=== PATIENT | female | born 1945 | race Caucasian/White ===

== ENCOUNTER 2017-01-03 09:38 | Emergency (ER) | payer MEDICARE, OTHER ==
[2017-01-03 09:46] VITALS: BMI 33.2
--- NOTE | 2017-01-03 09:52 | PDOC ---
History of Present Illness - General Chief Complaint: Shortness of Breath Stated Complaint: SOB, LEG PAIN Time Seen by Provider: 01/03/17 09:51 - History of Present Illness Initial Comments: 01/03/17 09:52 Ms. Lincoln is a 71 yo female with a significant past medical history of CAD S /P CABG, HTN, HLD, diabetes and hypothyroidism who presents to the emergency department c/o a 1 day history of sudden onset shortness of breath as well as significant bilateral pain to both of her legs from the knee down. She says that her SOB is non-positional and not related to exertion, and that her legs hurt with any pressure applied to them. The patient denies chest pain, headache and dizziness. Denies fever, chills, nausea, vomit, diarrhea and constipation. Denies dysuria, frequency, urgency and hematuria. Allergies: NKDA 01/03/17 13:06 Past History - Past Medical History Allergies/Adverse Reactions: Allergies Allergy/AdvReac Type Severity Reaction Status Date / Time No Known Allergies Allergy Verified 01/03/17 09:43 Home Medications: Ambulatory Orders Albuterol Sulfate Inhaler - [Ventolin HFA Inhaler -] 1 - 2 inh PO Q4H PRN Aspirin Coated [Ecotrin -] 81 mg PO DAILY 07/15/14 Ferrous Sulfate [Feosol] 325 mg PO BID 07/15/14 Furosemide [Lasix -] 20 mg PO DAILY 07/15/14 Insulin Lispro Protamin/Lispro [Humalog Mix 75-25 Kwikpen] 0 unit SQ DAILY 07/15 Levothyroxine [Synthroid -] 25 mcg PO DAILY 07/15/14 Linagliptin [Tradjenta] 5 mg PO DAILY 07/15/14 Nebivolol [Bystolic -] 5 mg PO DAILY 07/15/14 Omeprazole [Prilosec (RX)] 40 mg PO DAILY 07/15/14 Prasugrel Hydrochloride [Effient -] 5 mg PO DAILY 07/15/14 Rosuvastatin [Crestor -] 10 mg PO DAILY 07/15/14 Cardiac Disorders: Yes (cad -> cabg 2 y ago) COPD: No CHF: No DVT: No Diabetes: Yes HTN: Yes Hypercholesterolemia: No ('I have cholesterol but it's not high') Thyroid Disease: Yes (HYPO.) - Surgical History Abdominal Surgery: Yes Appendectomy: Yes Cardiac Surgery: Yes (bypass) - Suicide/Smoking/Psychosocial Hx Smoking Status: No Smoking History: Never smoked Number of Cigarettes Smoked Daily: 0 Information on smoking cessation initiated: No Hx Alcohol Use: No Drug/Substance Use Hx: No Substance Use Type: None Hx Substance Use Treatment: No Review of Systems - Review of Systems Comments:: 01/03/17 09:52 GENERAL/CONSTITUTIONAL: No fever or chills. No weakness. HEAD, EYES, EARS, NOSE AND THROAT: No change in vision. No ear pain or discharge. No sore throat. CARDIOVASCULAR: No chest pain or shortness of breath RESPIRATORY: +Patient states she suddenly started feeling short of breath yesterday while at rest. No cough, wheezing, or hemoptysis. GASTROINTESTINAL: No nausea, vomiting, diarrhea or constipation. GENITOURINARY: No dysuria, frequency, or change in urination. MUSCULOSKELETAL: +Bilateral leg swelling for the last day that the patient says is acutely painful. This has happened previously and went away on its own. SKIN: No rash NEUROLOGIC: No headache, vertigo, loss of consciousness, or change in strength/ sensation. ENDOCRINE: No increased thirst. No abnormal weight change HEMATOLOGIC/LYMPHATIC: No anemia, easy bleeding, or history of blood clots. ALLERGIC/IMMUNOLOGIC: No hives or skin allergy. *Physical Exam - Vital Signs Last Vital Signs Temp Pulse Resp BP Pulse Ox 98.1 F 63 18 147/75 99 01/03/17 09:44 01/03/17 09:44 01/03/17 09:44 01/03/17 09:44 01/03/17 09:44 - Physical Exam Comments: 01/03/17 09:52 GENERAL: Awake, alert, and fully oriented, in no acute distress HEAD: No signs of trauma, normocephalic, atraumatic EYES: PERRLA, EOMI, sclera anicteric, conjunctiva clear ENT: Auricles normal inspection, hearing grossly normal, nares patent, oropharynx clear without exudates. Moist mucosa NECK: Normal ROM, supple, no lymphadenopathy, JVD, or masses LUNGS: +Patient resting comfortably on 2L O2. Speaks full sentences, clear to auscultation bilaterally HEART: Regular rate and rhythm, normal S1 and S2, no murmurs, rubs or gallops, peripheral pulses normal and equal bilaterally. ABDOMEN: Soft, nontender, normoactive bowel sounds. No guarding, no rebound. No masses EXTREMITIES: +Lower extremities appear edematous, 1+ pedal edema bilaterally. Graft scars appreciable bilaterally. Acutely tender to palpation below knee extending to bottom of foot bilaterally. NEUROLOGICAL: Cranial nerves II through XII grossly intact. Normal speech, normal gait, no focal sensorimotor deficits SKIN: Warm, Dry, normal turgor, no rashes or lesions noted. ED Treatment Course - LABORATORY CBC & Chemistry Diagram: 01/03/17 10:17 01/03/17 10:17 Medical Decision Making - Medical Decision Making 01/03/17 13:01 71 yo female with subjective dyspnea w/o hypoxia or any physical signs of respiratory distress. With leg swelling and sudden onset, both CTA and bilateral lower extremity duplex US performed. Duplex negative for any deep vein thrombosis, CTA found trace layering bilateral pleural effusions significant for mild CHF decompensation. 01/03/17 13:18 Patient discussed with PCP (Niki) - recommended 40 of lasix for dieresis and to instruct patient to take 2 tabs of home lasix for the next 2 days and follow- up on Tuesday. Will comply with recommendations. *DC/Admit/Observation/Transfer Diagnosis at time of Disposition: Pleural effusion - Discharge Dispostion Disposition: HOME - Referrals Referrals: Bronson Prince [Primary Care Provider] - - Patient Instructions Printed Discharge Instructions: Pleural Effusion Additional Instructions: We are sorry that you feel ill today. You have been diagnosed with pleural effusion. Please take 2 pills of your proscribed lasix tomorrow and tuesday and follow-up with your primary doctor on Tuesday or . We hope you feel better soon. Print Language: CAMBODIAN
--- NOTE | 2017-01-03 10:19 | PDOC ---
Attending Attestation - Resident Resident Name: Bautista Guardado - ED Attending Attestation I have performed the following: I have examined & evaluated the patient, The case was reviewed & discussed with the resident, I agree w/resident's findings & plan, Exceptions are as noted - HPI HPI: 01/03/17 10:17 Leg swelling, shortness of breath - Physicial Exam PE: 01/03/17 10:18 VSS NAD - Medical Decision Making 01/03/17 10:[address] Guardado's Assessment and Plan <Bradley Falk - Last Filed: 01/03/17 10:17> - Medical Decision Making 01/03/17 13:09 Dr. Bronson Prince was paged at the office requesting a call back for doctor to doctor consult. Documentation prepared by Claudia Stephens, acting as medical anthropologist for Bradley Falk DO <Claudia Stephens - Last Filed: 01/03/17 13:09>
[2017-01-03 10:52] LABS: BASOPHIL 0.8 % (0-2.0); EOSINOPHIL 4.4 % (0-4.5); MCH 30.2 pg (25.7-33.7); MCHC 32.6 g/dl (32.0-36.0); MEAN CELL VOLUME 92.5 fl (80-96); MEAN PLT VOLUME 7.2 fl (7.5-11.1); NEUTROPHILS 62.1 % (42.8-82.8); PLATELET COUNT 244 K/MM3 (134-434); RDW 14.3 % (11.6-15.6); WHITE BLOOD COUNT 6.9 K/mm3 (4.0-10.0)
[2017-01-03 11:02] LABS: ALBUMIN 3.3 g/dl (3.4-5.0); ANION GAP 5 (8-16); BILIRUBIN,TOTAL 0.6 mg/dL (0.2-1.0); CALCIUM 8.4 mg/dL (8.5-10.1); CO2 28 mmol/L (21-32); CREATININE 1.3 mg/dL (0.55-1.02); GLUCOSE,RANDOM 137 mg/dL (74-106); SGOT/AST 18 U/L (15-37); SGPT/ALT 19 U/L (12-78)
[2017-01-03 11:04] LABS: ALK PHOS 69 U/L (45-117); TOT PROT 7.2 g/dl (6.4-8.2)
[2017-01-03] MEDS ORDERED: SODIUM CHLORIDE 1,000 ML IV STA (11:08)
[2017-01-03 11:09] LABS: INR 1.05 (0.82-1.09); PROTHROMBIN TIME (PATIENT) 11.6 SEC (9.98-11.88)
[2017-01-03 11:10] LABS: CPK 190 IU/L (26-192); THYROID STIMULATING HORMONE 4.06 uIU/ml (0.358-3.74); TROPONIN I < 0.02 ng/ml (0.00-0.05)
[2017-01-03 12:24] LABS: URINE APPEARANCE CLEAR; URINE BILIRUBIN NEGATIVE (NEGATIVE); URINE BLOOD NEGATIVE (NEGATIVE); URINE COLOR STRAW; URINE GLUCOSE (UA) NEGATIVE (NEGATIVE); URINE KETONE NEGATIVE (NEGATIVE); URINE NITRITE NEGATIVE (NEGATIVE); URINE PROTEIN NEGATIVE (NEGATIVE); URINE UROBILINOGEN NEGATIVE mg/dL (0.2-1.0)
--- NOTE | 2017-01-03 12:37 | EKG ---
Test Reason : Blood Pressure : / mmHG Vent. Rate : 061 BPM Atrial Rate : 061 BPM P-R Int : 152 ms QRS Dur : 124 ms QT Int : 458 ms P-R-T Axes : 052 -33 -08 degrees QTc Int : 461 ms NORMAL SINUS RHYTHM LEFT AXIS DEVIATION RIGHT BUNDLE BRANCH BLOCK ABNORMAL ECG WHEN COMPARED WITH ECG OF 13-DEC-2015 12:04, T WAVE VARIATION Confirmed by MANDA LEWIS MD ([id number]) on 01/03/2017 12:37:10 PM Referred By: Confirmed By:MANDA LEWIS MD
[2017-01-03] MEDS ORDERED: FUROSEMIDE 40 MG/4 ML INJECTABLE VIAL IVPUSH ONE (13:20)
[2017-01-03] MEDS ORDERED: FUROSEMIDE 40 MG/4 ML INJECTABLE VIAL ONE (13:21)
[2017-01-03 15:58] VITALS: BP 119/57; PULSE 62; TEMP 98
[2017-01-03 17:11] LABS: URINE LEUK ESTERASE Negative (NEGATIVE)
== END 2017-01-03 16:03 | disposition home or self-care (01) ==
LOC: JER 09:38
PROC: 3E033GC Introduction of Other Therapeutic Substance into Peripheral Vein, Percutaneous Approach (ICD-10-PCS; principal; 2017-01-03)
PROC: 3E0337Z Introduction of Electrolytic and Water Balance Substance into Peripheral Vein, Percutaneous Approach (ICD-10-PCS; 2017-01-03)
DX: J90 Pleural effusion, not elsewhere classified (principal); I10 Essential (primary) hypertension; E78.5 Hyperlipidemia, unspecified; I25.10 Atherosclerotic heart disease of native coronary artery without angina pectoris; Z95.1 Presence of aortocoronary bypass graft; E03.9 Hypothyroidism, unspecified; E11.9 Type 2 diabetes mellitus without complications
CPT/HCPCS: 36415; 71275-TC; 80053; 81003; 82553; 83880; 84443; 84484; 85025; 85610; 93005; 93010; 93970-TC; 99285-25

== ENCOUNTER 2017-06-01 08:13 | Emergency (ER) | payer MEDICARE, OTHER ==
[2017-06-01 08:25] VITALS: BP 145/67; PULSE 72; TEMP 99.3; BMI 29.2
--- NOTE | 2017-06-01 08:55 | PDOC ---
History of Present Illness - General Chief Complaint: Cold Symptoms Stated Complaint: COUGH, FEVER Time Seen by Provider: 06/01/17 08:31 History Source: Patient Exam Limitations: No Limitations - History of Present Illness Initial Comments: 06/01/17 08:49 71 yr female with c/o cough and fever since last night. no abd pain no chest pain or diarrhea. history of DM, HTN obesity. Past History - Past Medical History Allergies/Adverse Reactions: Allergies Allergy/AdvReac Type Severity Reaction Status Date / Time No Known Allergies Allergy Verified 06/01/17 08:24 Home Medications: Ambulatory Orders Albuterol Sulfate Inhaler - [Ventolin HFA Inhaler -] 1 - 2 inh PO Q4H PRN Aspirin Coated [Ecotrin -] 81 mg PO DAILY 07/15/14 Ferrous Sulfate [Feosol] 325 mg PO BID 07/15/14 Furosemide [Lasix -] 20 mg PO DAILY 07/15/14 Insulin Lispro Protamin/Lispro [Humalog Mix 75-25 Kwikpen] 0 unit SQ DAILY 07/15 Levothyroxine [Synthroid -] 25 mcg PO DAILY 07/15/14 Linagliptin [Tradjenta] 5 mg PO DAILY 07/15/14 Nebivolol [Bystolic -] 5 mg PO DAILY 07/15/14 Omeprazole [Prilosec (RX)] 40 mg PO DAILY 07/15/14 Prasugrel Hydrochloride [Effient -] 5 mg PO DAILY 07/15/14 Rosuvastatin [Crestor -] 10 mg PO DAILY 07/15/14 Furosemide [Lasix] 20 mg PO BID #6 tablet 01/03/17 Oseltamivir Phosphate [Tamiflu] 75 mg PO BID #10 capsule 06/01/17 Cardiac Disorders: Yes (cad -> cabg 2 y ago) COPD: No CHF: No DVT: No Diabetes: Yes HTN: Yes Hypercholesterolemia: No ('I have cholesterol but it's not high') Thyroid Disease: Yes (HYPO.) - Surgical History Abdominal Surgery: Yes Appendectomy: Yes Cardiac Surgery: Yes (bypass) - Suicide/Smoking/Psychosocial Hx Smoking Status: No Smoking History: Never smoked Number of Cigarettes Smoked Daily: 0 Information on smoking cessation initiated: No Hx Alcohol Use: No Drug/Substance Use Hx: No Substance Use Type: None Hx Substance Use Treatment: No Respiratory Specific PMHX - Complaint Specific PMHX Angina: No Bronchitis: No Pneumonia: No Pulmonary Embolus: No TB (Tuberculosis): No Review of Systems - Review of Systems Able to Perform ROS?: Yes Is the patient limited Chadian proficient: No Constitutional: Yes: Symptoms Reported HEENTM: No: Symptoms Reported Respiratory: Yes: Cough Cardiac (ROS): No: Symptoms Reported ABD/GI: No: Symptoms Reported : No: Symptoms Reported Musculoskeletal: Yes: Symptoms Reported *Physical Exam - Vital Signs Last Vital Signs Temp Pulse Resp BP Pulse Ox 99.3 F 72 19 145/67 97 06/01/17 08:23 06/01/17 08:23 06/01/17 08:23 06/01/17 08:23 06/01/17 08:23 - Physical Exam General Appearance: Yes: Nourished, Appropriately Dressed HEENT: positive: EOMI, KENNY, TMs Normal, Pharyngeal Erythema. negative: Tonsillar Exudate, Tonsillar Erythema Neck: positive: Supple. negative: Tender Respiratory/Chest: positive: Lungs Clear, Normal Breath Sounds. negative: Crackles, Rales, Rhonchi, Stridor, Wheezing Cardiovascular: positive: Regular Rhythm, Regular Rate Gastrointestinal/Abdominal: positive: Normal Bowel Sounds, Soft. negative: Tender Musculoskeletal: positive: Normal Inspection Extremity: positive: Normal Capillary Refill, Normal Inspection, Normal Range of Motion Integumentary: positive: Normal Color, Dry, Warm Neurologic: positive: Fully Oriented, Alert, Normal Mood/Affect, Normal Response , Motor Strength 5/5 ED Treatment Course - RADIOLOGY Radiology Studies Ordered: Category Date Time Status CHEST PA & LAT [RAD] Stat Radiology 06/01/17 08:27 Taken Medical Decision Making - Medical Decision Making 06/01/17 08:57 cc: cough chills, fever , total body aches started last night no abd pain or vomiting no SOB pt denies smoking has dry cough will get CXR r/o pneumonia *DC/Admit/Observation/Transfer Diagnosis at time of Disposition: Influenza-like illness - Discharge Dispostion Disposition: HOME Condition at time of disposition: Good - Prescriptions Prescriptions: Oseltamivir Phosphate [Tamiflu] 75 mg PO BID #10 capsule - Referrals Referrals: Bronson Prince [Primary Care Provider] - - Patient Instructions Printed Discharge Instructions: DI for Viral Upper Respiratory Infection -- Adult Additional Instructions: rest at home and drink pleanty of fluids take tylenol 650mg every 4-6hrs for pain /chills /body aches take Tamiflu as directed, stop the tamiflu if you have vomiting or stomach upset or diarrhea Please follow with your doctor in 1-2 days for follow up Return to the ER for any worsening symptoms - Post Discharge Activity
[2017-06-01] MEDS ORDERED: ACETAMINOPHEN 325 MG TABLET (FP) PO ONE (09:12)
[2017-06-01] MEDS ORDERED: ACETAMINOPHEN 325 MG TABLET (FP) ONE (09:12)
== END 2017-06-01 09:17 | disposition home or self-care (01) ==
LOC: JERFT 08:13
DX: J11.1 Influenza due to unidentified influenza virus with other respiratory manifestations (principal); E11.9 Type 2 diabetes mellitus without complications; I10 Essential (primary) hypertension; E03.9 Hypothyroidism, unspecified; Z79.4 Long term (current) use of insulin
CPT/HCPCS: 71046-TC-FY; 99281-25

== ENCOUNTER 2019-02-24 10:03 | Inpatient (IN) | payer MEDICARE, OTHER ==
[2019-02-24 11:16] LABS: BASO % 0.5 % (0-2.0); EOS % 3.8 % (0-4.5); HEMATOCRIT 37.7 % (32.4-45.2); HEMOGLOBIN 12.8 GM/dL (10.7-15.3); LYMPH % 20.2 % (8-40); MCH 30.3 pg (25.7-33.7); MCHC 33.9 g/dl (32.0-36.0); MEAN CELL VOLUME 89.4 fl (80-96); MEAN PLT VOLUME 7.4 fl (7.5-11.1); MONO % 4.2 % (3.8-10.2); NEUT % 71.3 % (42.8-82.8); PLATELET COUNT 256 K/MM3 (134-434); RBC 4.22 M/mm3 (3.60-5.2); RDW 13.6 % (11.6-15.6); WHITE BLOOD COUNT 9.8 K/mm3 (4.0-10.0)
[2019-02-24 11:46] LABS: ALBUMIN 3.7 g/dl (3.4-5.0); BILIRUBIN,TOTAL 0.5 mg/dL (0.2-1); BLOOD UREA NITROGEN 24.4 mg/dL (7-18); CALCIUM 8.8 mg/dL (8.5-10.1); CREATININE 1.2 mg/dL (0.55-1.3); POTASSIUM 4.3 mmol/L (3.5-5.1); TOT PROT 7.4 g/dl (6.4-8.2)
[2019-02-24 11:48] LABS: INR 0.94 (0.83-1.09); PROTHROMBIN TIME (PATIENT) 11.1 SEC (9.7-13.0)
[2019-02-24] MEDS ORDERED: PIPERACILLIN/TAZOB 4.5 GM 4.5 GM in DEXTROSE 5%-WATER - 100 ML IVPB ONE (13:53)
[2019-02-24] MEDS ORDERED: PIPERACILLIN/TAZOB 4.5 GM 4.5 GM/100 ML BAG IVPB ONE (14:01)
[2019-02-24 14:11] LABS: PH,URINE 6.5 (5.0-8.0); URINE APPEARANCE CLEAR; URINE BILIRUBIN NEGATIVE (NEGATIVE); URINE COLOR YELLOW; URINE GLUCOSE (UA) NEGATIVE (NEGATIVE); URINE KETONE NEGATIVE (NEGATIVE); URINE LEUK ESTERASE NEGATIVE (NEGATIVE); URINE NITRITE NEGATIVE (NEGATIVE); URINE PROTEIN NEGATIVE (NEGATIVE); URINE UROBILINOGEN 0.2 mg/dL (0.2-1.0)
--- NOTE | 2019-02-24 14:20 | PDOC ---
Documentation entered by Zenia Schilling SCRIBE, acting as scribe for Jamie Cratf MD. Jamie Craft MD: This documentation has been prepared by the Shakir hubbard Brenda, SCRIBE, under my direction and personally reviewed by me in its entirety. I confirm that the documentation accurately reflects all work, treatment, procedures, and medical decision making performed by me. History of Present Illness - General Chief Complaint: Chest Pain Stated Complaint: CHEST PAIN Time Seen by Provider: 02/24/19 11:06 History Source: Patient Exam Limitations: No Limitations - History of Present Illness Initial Comments: 02/24/19 12:17 The patient is a 73 year old female, with a significant PMH of HTN, HLD, CAD ( cabg 2 years ago) and DM, hypothyroidism who presents to the emergency department with 3 days of chest pain and 1 day of abdominal pain. Patient reports that she has been feeling shortness of breath and palpations accompanied by the chest pain. She states trying her home albuterol to no avail. She reports the chest pain occurs at rest and with exertion. It is not reproducible. She denies trauma. Patient also reports that earlier in the day yesterday, she had sharp lower bilateral abdominal pain and 5 bouts of yellow diarrhea. She states that later that night around 12:00am, she began to feel chills and a subjective fever. The patient denies any similar episodes prior. Denies headache, focal weakness/ numbness and dizziness. Denies nausea, vomiting and constipation. Denies hematochezia. Denies dysuria, frequency, urgency and hematuria. Allergies: NKA Past surgical history: Appendectomy, Cardiac bypass Social history: No reported tobacco use, alcohol use or illicit drug use. PCP: Niki Past History - Past Medical History Allergies/Adverse Reactions: Allergies Allergy/AdvReac Type Severity Reaction Status Date / Time No Known Allergies Allergy Verified 02/24/19 10:16 Home Medications: Ambulatory Orders Amantadine HCl [Amantadine] 100 mg PO DAILY 02/24/19 Aspirin [ASA -] 81 mg PO DAILY 02/24/19 Calcium Carbonate/Vitamin D3 [Calcium 500 + Vit D3 400 Tab] 1 each PO BID Chlorthalidone 25 mg PO DAILY 02/24/19 Ferrous Sulfate 325 mg PO DAILY 02/24/19 Icosapent Ethyl [Vascepa] 1 cap PO DAILY 02/24/19 Insulin Aspart [Novolog] 100 unit SQ ASDIR 02/24/19 Levothyroxine [Synthroid -] 25 mcg PO DAILY 02/24/19 Linagliptin [Tradjenta] 5 mg PO DAILY 02/24/19 Multivitamins [Tab-A-Vit -] 1 tab PO DAILY 02/24/19 Rosuvastatin Calcium 20 mg PO DAILY 02/24/19 Cardiac Disorders: Yes (cad -> cabg 2 y ago) COPD: No CHF: No DVT: No Diabetes: Yes HTN: Yes Hypercholesterolemia: No ('I have cholesterol but it's not high') Thyroid Disease: Yes (HYPO.) - Surgical History Abdominal Surgery: Yes Appendectomy: Yes Cardiac Surgery: Yes (bypass) - Psycho Social/Smoking Cessation Hx Smoking Status: No Smoking History: Never smoked Number of Cigarettes Smoked Daily: 0 Hx Alcohol Use: No Drug/Substance Use Hx: No Substance Use Type: None Hx Substance Use Treatment: No Review of Systems - Review of Systems Able to Perform ROS?: Yes Comments:: 02/24/19 13:01 GENERAL/CONSTITUTIONAL: (+) Subjective fever and chills. No weakness. HEAD, EYES, EARS, NOSE AND THROAT: No change in vision. No ear pain or discharge. No sore throat. GASTROINTESTINAL: (+) Abdominal pain. (+) Diarrhea. No nausea, vomiting, diarrhea or constipation. GENITOURINARY: No dysuria, frequency, or change in urination. CARDIOVASCULAR: (+) Chest pain. (+) Palpitations. No chest pain or shortness of breath. RESPIRATORY: No cough, wheezing, or hemoptysis. MUSCULOSKELETAL: No joint or muscle swelling or pain. No neck or back pain. SKIN: No rash NEUROLOGIC: No headache, vertigo, loss of consciousness, or change in strength/ sensation. ENDOCRINE: No increased thirst. No abnormal weight change. HEMATOLOGIC/LYMPHATIC: No anemia, easy bleeding, or history of blood clots. ALLERGIC/IMMUNOLOGIC: No hives or skin allergy. *Physical Exam - Vital Signs Last Vital Signs Temp Pulse Resp BP Pulse Ox 968 F H 77 16 136/73 99 02/24/19 10:15 02/24/19 10:15 02/24/19 10:15 02/24/19 10:15 02/24/19 10:15 - Physical Exam 02/24/19 13:04 GENERAL: Awake, alert, and fully oriented, in no acute distress, non toxic EYES: PERRLA, EOMI, sclera anicteric, conjunctiva clear ENT: Nares patent, oropharynx clear without exudates. Moist mucosa NECK: Normal ROM, supple, no lymphadenopathy, JVD, or masses LUNGS: Breath sounds equal, clear to auscultation bilaterally. No wheezes, and no crackles HEART: Regular rate and rhythm, normal S1 and S2, no murmurs, rubs or gallops ABDOMEN: Soft, L>R lower abd ttp, normoactive bowel sounds. No guarding, no rebound. No masses EXTREMITIES: Normal range of motion, no edema.No cords, erythema, or tenderness NEUROLOGICAL: Normal speech, cranial nerves intact, equal strength and sensation bilaterally SKIN: Warm, Dry, normal turgor, no rashes or lesions noted." Heart Score/ECG Review - History History: Slightly suspicious - Electrocardiogram EKG: Non specific repolarization disturbance - Age Age: >/= 65 - Risk Factors Based on the list above the patient has:: >/=3 risk factors or Hx atherosclerotic disease - Troponin Troponin: </= normal limit - Score Heart Score - Total: 5 #1 02/24/19 14:19 Twelve-lead EKG was performed and reviewed by me. Normal sinus rhythm, rate 79. Left axis deviation. Right bundle branch block. When compared to previous EKG, no significant change. ED Treatment Course - LABORATORY CBC & Chemistry Diagram: 02/24/19 11:00 02/24/19 11:00 - ADDITIONAL ORDERS Additional order review: Laboratory Results 02/24/19 11:00 Magnesium 2.1 02/24/19 11:00 RBC 4.22 MCV 89.4 MCHC 33.9 RDW 13.6 MPV 7.4 L Neutrophils % 71.3 Lymphocytes % 20.2 D Monocytes % 4.2 Eosinophils % 3.8 Basophils % 0.5 - RADIOLOGY Radiology Studies Ordered: Category Date Time Status ABDOMEN & PELVIS CT WITH CONTR [CT] Stat CT Scan 02/24/19 12:25 Completed Medical Decision Making - Medical Decision Making 02/24/19 12:16 73-year-old female with history of multiple medical problems including coronary artery disease status post CABG presents the emergency department with complaints of chest pain as well as abdominal pain. With regards to chest pain, differential includes ACS versus musculoskeletal pain versus pneumonia. EKG thus far is unchanged compared to baseline. With regards to abdominal pain differential includes UTI versus diverticulitis versus colitis. Plan for labs, urinalysis, CT scan of the abdomen and pelvis. Anticipate admission for chest pain given significant past cardiac history. 02/24/19 14:17 Labs within normal limits. Chest x-ray is clear. CT abdomen pelvis consistent with acute diverticulitis and possible early abscess formation. Patient has been covered with Zosyn for diverticulitis. Plan to admit to telemetry given chest pain as well. Dr. Graham's service has been contacted for admission, awaiting callback. 02/24/19 15:17 No call back, second call placed 02/24/19 15:[address] Syed, awaiting call back 02/24/19 16:[address] Syed, pt accepted for admission Case discussed in detail with admitting physician including history, physical exam and ancillary studies. Admitting physician has assumed care for the patient, will follow all pending diagnostics and will complete the evaluation and treatment. Discharge - Discharge Information Problems reviewed: Yes Clinical Impression/Diagnosis: Chest pain, Diverticulitis Condition: Stable - Follow up/Referral Referrals: Bronson Prince [Primary Care Provider] - - Patient Discharge Instructions - Post Discharge Activity
[2019-02-24] MEDS ORDERED: PIPERACILLIN/TAZOB 3.375 GM 3.375 GM/50 ML BAG IVPB ONE (20:13)
[2019-02-24] MEDS: PIPERACILLIN/TAZOB 3.375 GM 3.375 GM in DEXTROSE 5%-WATER - 50 ML IVPB SCH (20:48)
[2019-02-24] MEDS: SODIUM CHLORIDE 0.45%/POT 20 MEQ/1,000 ML INFUS.BAG IV SCH (20:48)
[2019-02-24] MEDS: ROSUVASTATIN CA 20 MG TABLET (FP) PO SCH (21:54)
[2019-02-24] MEDS: HEPARIN NA (PORCINE) 5,000 UNITS/ML 1ML VIAL SQ SCH (21:55)
[2019-02-25 00:19] VITALS: BMI 33.2
[2019-02-25] MEDS ORDERED: PIPERACILLIN/TAZOBACTAM 3.375 GM VIAL IVPB ONE ×3 (02:16→16:45)
[2019-02-25] MEDS ORDERED: DEXTROSE 5%-WATER - 50 ML IVPB ONE ×3 (02:17→16:45)
[2019-02-25] MEDS: PIPERACILLIN/TAZOB 3.375 GM 3.375 GM in DEXTROSE 5%-WATER - 50 ML IVPB SCH ×3 (02:56→17:03)
[2019-02-25] MEDS: LEVOTHYROXINE NA 25 MCG TABLET (FP) PO SCH (06:33)
[2019-02-25 07:10] LABS: BASO % 0.4 % (0-2.0); EOS % 3.6 % (0-4.5); HEMATOCRIT 39.7 % (32.4-45.2); HEMOGLOBIN 13.2 GM/dL (10.7-15.3); LYMPH % 28.6 % (8-40); MCH 29.9 pg (25.7-33.7); MCHC 33.2 g/dl (32.0-36.0); MEAN CELL VOLUME 90.2 fl (80-96); MEAN PLT VOLUME 7.6 fl (7.5-11.1); MONO % 5.3 % (3.8-10.2); NEUT % 62.1 % (42.8-82.8); PLATELET COUNT 277 K/MM3 (134-434); RDW 13.7 % (11.6-15.6); WHITE BLOOD COUNT 12.1 K/mm3 (4.0-10.0)
[2019-02-25 07:34] LABS: ALBUMIN 3.8 g/dl (3.4-5.0); ALK PHOS 85 U/L (45-117); ANION GAP 6 MMOL/L (8-16); BILIRUBIN,TOTAL 1.4 mg/dL (0.2-1); CALCIUM 8.9 mg/dL (8.5-10.1); CHLORIDE 104 mmol/L (98-107); CHOLESTEROL 160 mg/dL (50-200); CO2 27 mmol/L (21-32); CREATININE 1.5 mg/dL (0.55-1.3); GLUCOSE,RANDOM 95 mg/dL (74-106); HDL CHOLESTEROL 58 mg/dL (40-60); LDL CHOLESTEROL (ONLY SJRH) 72 mg/dL (5-100); MAGNESIUM 2.2 mg/dL (1.8-2.4); POTASSIUM 4.2 mmol/L (3.5-5.1); SGOT/AST 23 U/L (15-37); SGPT/ALT 22 U/L (13-61); SODIUM 138 mmol/L (136-145); TOT PROT 7.9 g/dl (6.4-8.2); TRIGLYCERIDES 240 mg/dL (0-150)
--- NOTE | 2019-02-25 10:22 | CON.CARD ---
Consult Consult Specialty:: Cardiology Referred by:: Yahaira Reason for Consultation:: chest pain - History of Present Illness Chief Complaint: chest pain, abd pain History of Present Illness: The patient is a 73 year old female, with a significant PMH of HTN, HLD, CAD ( cabg 2 years ago) and DM, hypothyroidism who presented with 3 days of chest pain and 1 day of abdominal pain, shortness of breath and palpations. She states trying her home albuterol to no avail. She reports the chest pain occurs at rest and with exertion. It is not reproducible. She denies trauma. Patient also reports that earlier in the day yesterday, she had sharp lower bilateral abdominal pain and 5 bouts of yellow diarrhea. She states that later that night around 12:00am, she began to feel chills and a subjective fever. A CT scan of the abdomen showed diverticulitis and early abscess formation. ECG showed no acute changes. - History Source History Provided By: Patient, Medical Record - Alcohol/Substance Use Hx Alcohol Use: No - Smoking History Smoking history: Never smoked Aproximately how many cigarettes per day: 0 Home Medications - Allergies Allergies/Adverse Reactions: Allergies Allergy/AdvReac Type Severity Reaction Status Date / Time No Known Allergies Allergy Verified 02/24/19 10:16 - Home Medications Home Medications: Ambulatory Orders Amantadine HCl [Amantadine] 100 mg PO DAILY 02/24/19 Aspirin [ASA -] 81 mg PO DAILY 02/24/19 Calcium Carbonate/Vitamin D3 [Calcium 500 + Vit D3 400 Tab] 1 each PO BID Chlorthalidone 25 mg PO DAILY 02/24/19 Ferrous Sulfate 325 mg PO DAILY 02/24/19 Icosapent Ethyl [Vascepa] 1 cap PO DAILY 02/24/19 Insulin Aspart [Novolog] 100 unit SQ ASDIR 02/24/19 Levothyroxine [Synthroid -] 25 mcg PO DAILY 02/24/19 Linagliptin [Tradjenta] 5 mg PO DAILY 02/24/19 Multivitamins [Tab-A-Vit -] 1 tab PO DAILY 02/24/19 Rosuvastatin Calcium 20 mg PO DAILY 02/24/19 Vital Signs: Vital Signs Temperature 98.9 F 02/25/19 07:00 Pulse Rate 80 02/25/19 07:00 Respiratory Rate 20 02/25/19 07:00 Blood Pressure 109/85 02/25/19 07:00 O2 Sat by Pulse Oximetry (%) 100 02/24/19 21:20 Constitutional: Yes: No Distress, Calm Eyes: Yes: Conjunctiva Clear, EOM Intact HENT: Yes: Normocephalic Neck: Yes: Trachea Midline Respiratory: Yes: CTA Bilaterally Gastrointestinal: Yes: Normal Bowel Sounds, Abdomen, Obese, Tenderness, Epigastrium Cardiovascular: Yes: Regular Rate and Rhythm JVD: No Carotid Bruit: No PMI: Non-Displaced Heart Sounds: Yes: S1, S2 Musculoskeletal: Yes: WNL Extremities: Yes: WNL Edema: No Peripheral Pulses WNL: Yes - Other Data Labs, Other Data: CBC, BMP 02/25/19 05:55 02/25/19 05:55 INR, PTT INR 0.94 (0.83-1.09) 02/24/19 11:00 Troponin, BNP 02/24/19 02/24/19 02/25/19 11:00 20:00 05:55 Troponin I < 0.02 < 0.02 < 0.02 Troponin, BNP 02/24/19 02/24/19 02/25/19 11:00 20:00 05:55 Troponin I < 0.02 < 0.02 < 0.02 Imaging - Results Cat Scan: Report Reviewed (diverticulitis, early abscess) EKG: Report Reviewed (nsr lad rbbb) Assessment/Plan 73 year old female, with a significant PMH of HTN, HLD, CAD (cabg 2 years ago) and DM, hypothyroidism who presented with 3 days of chest pain and 1 day of abdominal pain, shortness of breath and palpations. She states trying her home albuterol to no avail. She reports the chest pain occurs at rest and with exertion. It is not reproducible. She denies trauma. Patient also reports that earlier in the day yesterday, she had sharp lower bilateral abdominal pain and 5 bouts of yellow diarrhea. She states that later that night around 12:00am, she began to feel chills and a subjective fever. A CT scan of the abdomen showed diverticulitis and early abscess formation. ECG showed no acute changes. chest pain -atypical for angina, now stable. -she is not a candidate for ischemia workup at present given her infection status. -restart outpatient bp and lipid medication when stable for PO -she is followed by Glenn Lovett and Carmen at [facility] -while at present she is being managed conservatively, there are no cardiac contraindications to surgery if needed. -will follow with you.
[2019-02-25] MEDS: HEPARIN NA (PORCINE) 5,000 UNITS/ML 1ML VIAL SQ SCH ×2 (10:28→22:58)
[2019-02-25] MEDS: SODIUM CHLORIDE 0.45%/POT 20 MEQ/1,000 ML INFUS.BAG IV SCH ×2 (10:29→22:59)
--- NOTE | 2019-02-25 10:33 | CONSULT ---
Consult Consult Specialty:: Surgery Reason for Consultation:: Abdominal pain - History of Present Illness History of Present Illness: 73 year old female, with a significant PMH of HTN, HLD, CAD (cabg 2 years ago) and DM, hypothyroidism who presents to the emergency department with 3 days of chest pain and 1 day of abdominal pain. Patient reports that she has been feeling shortness of breath and palpations accompanied by the chest pain. She reports 3 days of crampy abdominal pain that has become progressivley worse, not associated with vomiting or change in bowel habits. There is no previous history of similar episodes and no history of previous abdominal surgery - Alcohol/Substance Use Hx Alcohol Use: No - Smoking History Smoking history: Never smoked Aproximately how many cigarettes per day: 0 Home Medications - Allergies Allergies/Adverse Reactions: Allergies Allergy/AdvReac Type Severity Reaction Status Date / Time No Known Allergies Allergy Verified 02/24/19 10:16 - Home Medications Home Medications: Ambulatory Orders Amantadine HCl [Amantadine] 100 mg PO DAILY 02/24/19 Aspirin [ASA -] 81 mg PO DAILY 02/24/19 Calcium Carbonate/Vitamin D3 [Calcium 500 + Vit D3 400 Tab] 1 each PO BID Chlorthalidone 25 mg PO DAILY 02/24/19 Ferrous Sulfate 325 mg PO DAILY 02/24/19 Icosapent Ethyl [Vascepa] 1 cap PO DAILY 02/24/19 Insulin Aspart [Novolog] 100 unit SQ ASDIR 02/24/19 Levothyroxine [Synthroid -] 25 mcg PO DAILY 02/24/19 Linagliptin [Tradjenta] 5 mg PO DAILY 02/24/19 Multivitamins [Tab-A-Vit -] 1 tab PO DAILY 02/24/19 Rosuvastatin Calcium 20 mg PO DAILY 02/24/19 Physical Exam Vital Signs: Vital Signs Temperature 99 F 02/25/19 09:00 Pulse Rate 76 02/25/19 09:00 Respiratory Rate 20 02/25/19 09:00 Blood Pressure 126/54 L 02/25/19 09:00 O2 Sat by Pulse Oximetry (%) 100 02/24/19 21:20 Gastrointestinal: Yes: Tenderness (Left Lower Quadrant tenderness with some guarding) Labs: CBC, BMP 02/25/19 05:55 02/25/19 05:55 Imaging - Results Cat Scan: Report Reviewed, Image Reviewed Problem List - Problems (1) Diverticulitis Code(s): K57.92 - DVTRCLI OF INTEST, PART UNSP, W/O PERF OR ABSCESS W/O BLEED Assessment/Plan 73 yr old female presenting with first episode of perforated diverticulitis with associted phlegmon. NPO Antibiotics Continue close observation I am concerned that the WBC is rising since admission She may need surgery in the event of clinical deterioration
--- NOTE | 2019-02-25 11:55 | HP ---
Admitting History and Physical - Admission History of Present Illness: 3 year old female, with a significant PMH of HTN, HLD, CAD (cabg 2 years ago) and DM, hypothyroidism who presents to the emergency department with 3 days of chest pain and 1 day of abdominal pain. Patient reports that she has been feeling shortness of breath and palpations accompanied by the chest pain. She states trying her home albuterol to no avail. She reports the chest pain occurs at rest and with exertion. It is not reproducible. She denies trauma. Patient also reports that earlier in the day yesterday, she had sharp lower bilateral abdominal pain and 5 bouts of yellow diarrhea. She states that later that night around 12:00am, she began to feel chills and a subjective fever. This am no cp or abdominal pain - Past Medical History Cardiovascular: Yes: CAD, HTN, Hyperlipdemia Pulmonary: Yes: Asthma Endocrine: Yes: Diabetes Mellitus, Hypothyroidism - Smoking History Smoking history: Never smoked Aproximately how many cigarettes per day: 0 - Alcohol/Substance Use Hx Alcohol Use: No Home Medications - Allergies Allergies/Adverse Reactions: Allergies Allergy/AdvReac Type Severity Reaction Status Date / Time No Known Allergies Allergy Verified 02/24/19 10:16 - Home Medications Home Medications: Ambulatory Orders Amantadine HCl [Amantadine] 100 mg PO DAILY 02/24/19 Aspirin [ASA -] 81 mg PO DAILY 02/24/19 Calcium Carbonate/Vitamin D3 [Calcium 500 + Vit D3 400 Tab] 1 each PO BID Chlorthalidone 25 mg PO DAILY 02/24/19 Ferrous Sulfate 325 mg PO DAILY 02/24/19 Icosapent Ethyl [Vascepa] 1 cap PO DAILY 02/24/19 Insulin Aspart [Novolog] 100 unit SQ ASDIR 02/24/19 Levothyroxine [Synthroid -] 25 mcg PO DAILY 02/24/19 Linagliptin [Tradjenta] 5 mg PO DAILY 02/24/19 Multivitamins [Tab-A-Vit -] 1 tab PO DAILY 02/24/19 Rosuvastatin Calcium 20 mg PO DAILY 02/24/19 Review of Systems - Review of Systems Cardiovascular: reports: Chest Pain Gastrointestinal: reports: Abdominal Pain, Diarrhea Genitourinary: reports: No Symptoms Physical Examination Vital Signs: Vital Signs Temperature 99 F 02/25/19 09:00 Pulse Rate 76 02/25/19 09:00 Respiratory Rate 20 02/25/19 09:00 Blood Pressure 126/54 L 02/25/19 09:00 O2 Sat by Pulse Oximetry (%) 100 02/24/19 21:20 Cardiovascular: Yes: S1, S2. No: Pulse Irregular Respiratory: Yes: Regular, CTA Bilaterally Gastrointestinal: Yes: Normal Bowel Sounds, Soft. No: Tenderness Edema: No Neurological: Yes: Alert, Oriented Labs: CBC, BMP 02/25/19 05:55 02/25/19 05:55 Imaging - Results Cat Scan: Report Reviewed Problem List - Problems (1) Diverticulitis Assessment/Plan: IV ABX ID,GI AND SURGICAL CONSULT NPO IVF Code(s): K57.92 - DVTRCLI OF INTEST, PART UNSP, W/O PERF OR ABSCESS W/O BLEED (2) Chest pain Assessment/Plan: TROPONIN NEGATIVE CARDIO CONSULT EKG NO ISCHEMIC CHANGES Code(s): R07.9 - CHEST PAIN, UNSPECIFIED (3) Diabetes Assessment/Plan: BGM WITH SS Code(s): E11.9 - TYPE 2 DIABETES MELLITUS WITHOUT COMPLICATIONS (4) HTN (hypertension) Assessment/Plan: Vital Signs Period Temp Pulse Resp BP Sys/Wiggins Pulse Ox Last 24 Hr 98.4 F-99.5 F 75-80 18-20 109-144/52-85 96-100 Code(s): I10 - ESSENTIAL (PRIMARY) HYPERTENSION (5) Hx of CABG Code(s): Z95.1 - PRESENCE OF AORTOCORONARY BYPASS GRAFT
[2019-02-25] MEDS: INSULIN (NOVOLOG) ASPART 100 UNITS/ML 10ML VIAL SQ SCH ×2 (16:32→22:58)
--- NOTE | 2019-02-25 16:51 | CON.ID ---
Consult Consult Specialty:: infectious disease Referred by:: dr lawson Reason for Consultation:: perforated diverticulitis - History of Present Illness Chief Complaint: abdominal pain History of Present Illness: 73 yo female with history of cabg, developed LLQ abdominal pain with chills and loose stools at home for one day- started on Tuesday after Thanksgiving no sick contacts no travel ct scan in ED with diverticular abscess reports some improvement in symptoms today- is npo this has never happened before +DM - History Source History Provided By: Patient, Family Member Limitations to Obtaining History: No Limitations - Past Medical History Cardio/Vascular: Yes: CAD, HTN, Hyperlipdemia Pulmonary: Yes: Asthma Endocrine: Yes: Diabetes Mellitus, Hypothyroidism - Past Surgical History Past Surgical History: Yes: Appendectomy, CABG - Alcohol/Substance Use Hx Alcohol Use: No - Smoking History Smoking history: Never smoked Aproximately how many cigarettes per day: 0 - Social History Usual Living Arrangement: With Child ADL: Independent Place of : Other ([facility]) History of Recent Travel: No Home Medications - Allergies Allergies/Adverse Reactions: Allergies Allergy/AdvReac Type Severity Reaction Status Date / Time No Known Allergies Allergy Verified 02/24/19 10:16 - Home Medications Home Medications: Ambulatory Orders Amantadine HCl [Amantadine] 100 mg PO DAILY 02/24/19 Aspirin [ASA -] 81 mg PO DAILY 02/24/19 Calcium Carbonate/Vitamin D3 [Calcium 500-Vit D3 400 Tablet] 1 each PO BID 02/24 Chlorthalidone 25 mg PO DAILY 02/24/19 Ferrous Sulfate 325 mg PO DAILY 02/24/19 Icosapent Ethyl [Vascepa] 1 cap PO DAILY 02/24/19 Insulin Aspart [Novolog] 100 unit SQ ASDIR 02/24/19 Levothyroxine [Synthroid -] 25 mcg PO DAILY 02/24/19 Linagliptin [Tradjenta] 5 mg PO DAILY 02/24/19 Multivitamins [Multivit ([facility] Formulary)] 1 tab PO DAILY 02/24/19 Rosuvastatin Calcium 20 mg PO DAILY 02/24/19 Ciprofloxacin [Cipro (Restricted To Id)] 500 mg PO Q12H #14 tablet 02/28/19 Empagliflozin [Jardiance] 10 mg PO DAILY #30 tablet 02/28/19 Rosuvastatin [Crestor -] 20 mg PO HS #30 tablet 02/28/19 metroNIDAZOLE [Flagyl -] 500 mg PO TID #21 tablet 02/28/19 Family Medical History Family History: Unable to Obtain Review of Systems - Review of Systems Constitutional: reports: Chills Eyes: reports: No Symptoms HENT: reports: No Symptoms Neck: reports: No Symptoms Cardiovascular: reports: No Symptoms Respiratory: reports: No Symptoms Gastrointestinal: reports: Abdominal Pain, Diarrhea. denies: Vomiting Genitourinary: reports: No Symptoms Physical Exam Vital Signs: Vital Signs Temperature 99.2 F 02/25/19 14:00 Pulse Rate 69 02/25/19 14:00 Respiratory Rate 20 02/25/19 14:00 Blood Pressure 120/57 L 02/25/19 14:00 O2 Sat by Pulse Oximetry (%) 96 02/25/19 09:00 Constitutional: Yes: Well Nourished, No Distress, Calm Eyes: Yes: Conjunctiva Clear HENT: Yes: Atraumatic, Normocephalic Neck: Yes: Supple Cardiovascular: Yes: Regular Rate and Rhythm Respiratory: Yes: Regular, CTA Bilaterally Gastrointestinal: Yes: Normal Bowel Sounds, Soft, Tenderness, Rebound, Other ( LLQ discomfort to pallpation) Extremities: Yes: WNL Psychiatric: Yes: Alert, Oriented Labs: CBC, BMP 02/25/19 05:55 02/25/19 05:55 UA negative Imaging - Results Chest X-ray: Report Reviewed, Image Reviewed Cat Scan: Report Reviewed Problem List - Problems (1) Diverticulitis Code(s): K57.92 - DVTRCLI OF INTEST, PART UNSP, W/O PERF OR ABSCESS W/O BLEED (2) Diabetes Code(s): E11.9 - TYPE 2 DIABETES MELLITUS WITHOUT COMPLICATIONS Assessment/Plan continue zosyn for now f/u labs and cultures surgery following
[2019-02-25] MEDS: ROSUVASTATIN CA 20 MG TABLET (FP) PO SCH (22:58)
[2019-02-26] MEDS ORDERED: PIPERACILLIN/TAZOBACTAM 3.375 GM VIAL IVPB ONE ×3 (01:37→16:29)
[2019-02-26] MEDS ORDERED: DEXTROSE 5%-WATER - 50 ML IVPB ONE ×3 (01:38→16:29)
[2019-02-26] MEDS: PIPERACILLIN/TAZOB 3.375 GM 3.375 GM in DEXTROSE 5%-WATER - 50 ML IVPB SCH ×3 (03:00→17:10)
[2019-02-26] MEDS: LEVOTHYROXINE NA 25 MCG TABLET (FP) PO SCH (06:53)
[2019-02-26] MEDS: INSULIN (NOVOLOG) ASPART 100 UNITS/ML 10ML VIAL SQ SCH ×4 (06:54→22:26)
[2019-02-26 06:59] LABS: BASO % 0.5 % (0-2.0); EOS % 6.2 % (0-4.5); HEMATOCRIT 36.2 % (32.4-45.2); HEMOGLOBIN 12.1 GM/dL (10.7-15.3); LYMPH % 35.9 % (8-40); MCHC 33.6 g/dl (32.0-36.0); MEAN CELL VOLUME 89.4 fl (80-96); MEAN PLT VOLUME 7.3 fl (7.5-11.1); MONO % 5.6 % (3.8-10.2); NEUT % 51.8 % (42.8-82.8); PLATELET COUNT 247 K/MM3 (134-434); RBC 4.05 M/mm3 (3.60-5.2); RDW 13.1 % (11.6-15.6); WHITE BLOOD COUNT 8.4 K/mm3 (4.0-10.0)
[2019-02-26 07:25] LABS: BLOOD UREA NITROGEN 17.5 mg/dL (7-18); CREATININE 1.5 mg/dL (0.55-1.3); POTASSIUM 4.5 mmol/L (3.5-5.1)
[2019-02-26 07:26] LABS: ALBUMIN 3.4 g/dl (3.4-5.0); BILIRUBIN,TOTAL 1.2 mg/dL (0.2-1); CALCIUM 8.7 mg/dL (8.5-10.1); TOT PROT 7.2 g/dl (6.4-8.2)
--- NOTE | 2019-02-26 08:15 | PN ---
Progress Note (short form) - Note Progress Note: 73yo being followed for first episode of perforated diverticulitis with associted phlegmon. Patient seen and examined at bedside. Patient states she is hungry and would like to eat. She denies any abdominal pain, CP, SOB, N/V, fever or chills. Vital Signs Temp 99.2 F 02/25/19 23:00 Pulse 71 02/26/19 07:00 Resp 20 02/26/19 07:00 BP 120/55 L 02/26/19 07:00 Pulse Ox 93 L 02/25/19 21:00 Intake & Output 02/25/19 02/25/19 02/26/19 11:59 23:59 11:59 Intake Total 613 374 7237 Balance 287 128 9120 Weight 170 lb 170 lb Intake: IV 465 908 8757 1/2NS+20MEQ KCL 20 meq In 800 1000 1,000 ml @ 100 mls/hr IV ASDIR [facility] Rx#: [id number] SL 900 IVPB 50 150 Oral 0 Other: Voiding Method Toilet Toilet # Unmeasured Voids Void 1 3 Bowel Movement No Weight Measurement Method Standing Scale Standing Scale CBC, BMP 02/26/19 06:27 02/26/19 06:27 PE: A&Ox3, NAD unlabored resp on RA ABD: obese, soft, ND, NT, no rebound, no guarding or masses. Problem List - Problems (1) Diverticulitis Assessment/Plan: Patient improving. 1) trend labs 2) ABX per ID 3) continue NPO 4) OOB as tolerated 5) surgery to follow Evaluation and plan discussed with Dr Calderon Code(s): K57.92 - DVTRCLI OF INTEST, PART UNSP, W/O PERF OR ABSCESS W/O BLEED
[2019-02-26] MEDS: HEPARIN NA (PORCINE) 5,000 UNITS/ML 1ML VIAL SQ SCH ×2 (09:31→22:26)
--- NOTE | 2019-02-26 10:44 | EKG ---
Test Reason : Blood Pressure : / mmHG Vent. Rate : 077 BPM Atrial Rate : 077 BPM P-R Int : 150 ms QRS Dur : 134 ms QT Int : 376 ms P-R-T Axes : 057 -42 000 degrees QTc Int : 425 ms NORMAL SINUS RHYTHM LEFT AXIS DEVIATION RIGHT BUNDLE BRANCH BLOCK ABNORMAL ECG WHEN COMPARED WITH ECG OF 24-FEB-2019 10:11, NO SIGNIFICANT CHANGE WAS FOUND Confirmed by MANDA LEWIS MD ([id number]) on 02/26/2019 10:44:28 AM Referred By: Confirmed By:MANDA LEWIS MD
--- NOTE | 2019-02-26 11:24 | EKG ---
Test Reason : Blood Pressure : / mmHG Vent. Rate : 079 BPM Atrial Rate : 079 BPM P-R Int : 146 ms QRS Dur : 122 ms QT Int : 402 ms P-R-T Axes : 058 -40 010 degrees QTc Int : 460 ms NORMAL SINUS RHYTHM LEFT AXIS DEVIATION RIGHT BUNDLE BRANCH BLOCK ABNORMAL ECG WHEN COMPARED WITH ECG OF 03-JAN-2017 10:15, NO SIGNIFICANT CHANGE WAS FOUND Confirmed by MANDA LEWIS MD ([id number]) on 02/26/2019 11:24:00 AM Referred By: Confirmed By:MANDA LEWIS MD
--- NOTE | 2019-02-26 12:34 | PN ---
Progress Note, Physician Chief Complaint: patient seen and examined wants to eat no abdominal pain - Current Medication List Current Medications: Active Medications Heparin Sodium (Porcine) (Heparin -) 5,000 unit SQ BID [facility] Last Admin: 02/26/19 09:31 Dose: 5,000 unit Potassium Chloride/Sodium Chloride (1/2ns+20meq Kcl) 20 meq in 1,000 mls @ 100 mls/hr IV ASDIR [facility] Last Admin: 02/25/19 22:59 Dose: 100 mls/hr Piperacillin Sod/Tazobactam (Sod 3.375 gm/ Dextrose) 50 mls @ 100 mls/hr IVPB Q8H-IV [facility]; Protocol Last Admin: 02/26/19 09:25 Dose: 100 mls/hr Metronidazole (Flagyl 500mg Premixed Ivpb -) 500 mg in 100 mls @ 100 mls/hr IVPB Q8H-IV [facility] Last Admin: 02/26/19 09:25 Dose: 100 mls/hr Insulin Aspart (Novolog Vial) 1 units SQ ACHS [facility]; Protocol Last Admin: 02/26/19 11:49 Dose: Not Given Levothyroxine Sodium (Synthroid -) 25 mcg PO DAILY@0700 [facility] Last Admin: 02/26/19 06:53 Dose: 25 mcg Rosuvastatin Calcium (Crestor -) 20 mg PO HS [facility] Last Admin: 02/25/19 22:58 Dose: 20 mg - Objective Vital Signs: Vital Signs Temperature 99.0 F 02/26/19 08:41 Pulse Rate 68 02/26/19 08:41 Respiratory Rate 18 02/26/19 08:41 Blood Pressure 127/59 L 02/26/19 08:41 O2 Sat by Pulse Oximetry (%) 93 L 02/26/19 08:38 Constitutional: Yes: Calm Cardiovascular: Yes: Regular Rate and Rhythm, S1, S2 Respiratory: Yes: CTA Bilaterally Gastrointestinal: Yes: Normal Bowel Sounds, Soft Edema: No Neurological: Yes: Alert, Oriented Labs: CBC, BMP 02/26/19 06:27 02/26/19 06:27 INR, PTT INR 0.94 (0.83-1.09) 02/24/19 11:00 Problem List - Problems (1) Diverticulitis Assessment/Plan: NPO ivf check lytes surgery on board ID on board wbc high but trending down on iv abx Code(s): K57.92 - DVTRCLI OF INTEST, PART UNSP, W/O PERF OR ABSCESS W/O BLEED (2) Hypothyroid Assessment/Plan: tsh noted increase synthroid dose Code(s): E03.9 - HYPOTHYROIDISM, UNSPECIFIED
--- NOTE | 2019-02-26 14:26 | PN ---
Progress Note, Physician Chief Complaint: Hungry Telem NSR History of Present Illness: 73 year old female, with a significant PMH of HTN, HLD, CAD (cabg 2 years ago) and DM, hypothyroidism who presented with 3 days of chest pain and 1 day of abdominal pain, shortness of breath and palpations. She states trying her home albuterol to no avail. She reports the chest pain occurs at rest and with exertion. It is not reproducible. A CT scan of the abdomen showed diverticulitis and early abscess formation. ECG showed no acute changes. - Current Medication List Current Medications: Active Medications Heparin Sodium (Porcine) (Heparin -) 5,000 unit SQ BID [facility] Last Admin: 02/26/19 09:31 Dose: 5,000 unit Potassium Chloride/Sodium Chloride (1/2ns+20meq Kcl) 20 meq in 1,000 mls @ 100 mls/hr IV ASDIR [facility] Last Admin: 02/25/19 22:59 Dose: 100 mls/hr Piperacillin Sod/Tazobactam (Sod 3.375 gm/ Dextrose) 50 mls @ 100 mls/hr IVPB Q8H-IV [facility]; Protocol Last Admin: 02/26/19 09:25 Dose: 100 mls/hr Metronidazole (Flagyl 500mg Premixed Ivpb -) 500 mg in 100 mls @ 100 mls/hr IVPB Q8H-IV [facility] Last Admin: 02/26/19 09:25 Dose: 100 mls/hr Insulin Aspart (Novolog Vial) 1 units SQ ACHS [facility]; Protocol Last Admin: 02/26/19 11:49 Dose: Not Given Levothyroxine Sodium (Synthroid -) 50 mcg PO DAILY@0700 [facility] Rosuvastatin Calcium (Crestor -) 20 mg PO HS [facility] Last Admin: 02/25/19 22:58 Dose: 20 mg - Objective Vital Signs: Vital Signs Temperature 99.0 F 02/26/19 08:41 Pulse Rate 68 02/26/19 08:41 Respiratory Rate 18 02/26/19 08:41 Blood Pressure 127/59 L 02/26/19 08:41 O2 Sat by Pulse Oximetry (%) 93 L 02/26/19 08:38 Constitutional: Yes: Well Nourished, No Distress Eyes: Yes: Conjunctiva Clear, EOM Intact HENT: Yes: Atraumatic, Normocephalic Neck: Yes: Supple, Trachea Midline Cardiovascular: Yes: Regular Rate and Rhythm. No: JVD Respiratory: Yes: Regular, CTA Bilaterally Gastrointestinal: Yes: Normal Bowel Sounds, Soft Edema: No Peripheral Pulses WNL: Yes Labs: CBC, BMP 02/26/19 06:27 02/26/19 06:27 INR, PTT INR 0.94 (0.83-1.09) 02/24/19 11:00 Problem List - Problems (1) Chest pain Code(s): R07.9 - CHEST PAIN, UNSPECIFIED Assessment/Plan 73 year old female, with a significant PMH of HTN, HLD, CAD (cabg 2 years ago) and DM, hypothyroidism who presented with 3 days of chest pain and 1 day of abdominal pain, shortness of breath and palpations. She states trying her home albuterol to no avail. She reports the chest pain occurs at rest and with exertion. It is not reproducible. She denies trauma. Patient also reports that earlier in the day yesterday, she had sharp lower bilateral abdominal pain and 5 bouts of yellow diarrhea. She states that later that night around 12:00am, she began to feel chills and a subjective fever. A CT scan of the abdomen showed diverticulitis and early abscess formation. ECG showed no acute changes. chest pain -atypical for angina, now stable. -she is not a candidate for ischemia workup at present given her infection status. -restart outpatient bp and lipid medication when stable for PO -she is followed by Glenn Lovett and Carmen at [facility] -while at present she is being managed conservatively, there are no cardiac contraindications to surgery if needed. Telemetry can be discontinued. Will see as needed
--- NOTE | 2019-02-26 15:43 | ECHO ---
Name: JESSE ANGELES Exam:Adult Echocardiogram Study Date: 02/26/2019 03:02 PM Age: 73 yrs Reason For Study: CP Height: 60 in Weight: 154 lb BSA: 1.7 m2 MMode/2D Measurements & Calculations IVSd: 0.92 cm Ao root diam: 2.8 cm LVIDd: 3.8 cm LA dimension: 2.8 cm LVIDs: 2.7 cm ACS: 1.2 cm LVPWd: 1.3 cm EDV(Teich): 63.4 ml RV S Donna: 7.1 cm/sec ESV(Teich): 28.2 ml Doppler Measurements & Calculations MV E max donna: 121.1 cm/sec Ao V2 max: 207.7 cm/sec MV A max donna: 140.4 cm/sec Ao max P.2 mmHg MV E/A: 0.86 Ao V2 mean: 149.1 cm/sec MV dec time: 0.19 sec Ao mean P.6 mmHg Ao V2 VTI: 46.7 cm AI P1/2t: 495.6 msec AI max donna: 455.0 cm/sec LV V1 max P.7 mmHg AI max P.8 mmHg LV V1 mean P.0 mmHg LV V1 max: 81.8 cm/sec AI dec slope: 268.9 cm/sec2 LV V1 mean: 68.7 cm/sec LV V1 VTI: 27.8 cm MR max donna: 367.7 cm/sec TR max donna: 190.7 cm/sec MR max P.1 mmHg TR max P.7 mmHg PI end-d donna: 143.9 cm/sec Med Peak E' Donna: 9.9 cm/sec Med E/e': 12.2 Lat Peak E' Donna: 6.1 cm/sec Lat E/e': 19.7 Procedure A complete two-dimensional transthoracic echocardiogram was performed (2D, M-mode, Doppler and color flow Doppler). Technically limited study. Left Ventricle The left ventricle is normal in size. Left ventricular systolic function is normal. Ejection Fraction = 60- 65%. No regional wall motion abnormalities noted. Right Ventricle The right ventricle is not well visualized. Atria The left atrial size is normal. Right atrial size is normal. Mitral Valve There is mild mitral annular calcification. There is mild mitral regurgitation. Tricuspid Valve The tricuspid valve is normal in structure and function. There is mild tricuspid regurgitation. Right ventricular systolic pressure is normal. Aortic Valve There is mild aortic sclerosis.;. No aortic regurgitation is present. Pulmonic Valve The pulmonic valve is not well visualized. Great Vessels The aortic root is normal size. Pericardium/Pleura There is no pericardial effusion. Interpretation Summary Technically limited study The left ventricle is normal in size. Left ventricular systolic function is normal. No regional wall motion abnormalities noted. Ejection Fraction = 60-65%. The right ventricle is not well visualized. The left atrial size is normal. Right atrial size is normal. There is mild mitral annular calcification. There is mild mitral regurgitation. There is mild tricuspid regurgitation. Right ventricular systolic pressure is normal. There is mild aortic sclerosis. There is no pericardial effusion. Yusuf Wesley MD 02/26/2019 03:43 PM
--- NOTE | 2019-02-26 17:27 | PN ---
Progress Note (short form) - Note Progress Note: alert no abdominal pain today Vital Signs Period Temp Pulse Resp BP Sys/Wiggins Pulse Ox Last 24 Hr 98.5 F-99.2 F 68-73 18-20 120-146/52-68 93 cor-rrr llungs clear abd soft,nt ext no edema CBC, BMP 02/26/19 06:27 02/26/19 06:27 Microbiology 02/25/19 19:51 Blood - Peripheral Venous Blood Culture - Preliminary NO GROWTH OBTAINED AFTER 24 HOURS, INCUBATION TO CONTINUE FOR 4 DAYS. 02/25/19 19:45 Blood - Peripheral Venous Blood Culture - Preliminary NO GROWTH OBTAINED AFTER 24 HOURS, INCUBATION TO CONTINUE FOR 4 DAYS. 02/24/19 14:05 Urine - Urine Clean Catch Urine Culture - Final NO GROWTH OBTAINED Current Medications Heparin Sodium (Porcine) (Heparin -) 5,000 unit SQ BID [facility] Last Admin: 02/26/19 09:31 Dose: 5,000 unit Potassium Chloride/Sodium Chloride (1/2ns+20meq Kcl) 20 meq in 1,000 mls @ 100 mls/hr IV ASDIR [facility] Last Admin: 02/25/19 22:59 Dose: 100 mls/hr Piperacillin Sod/Tazobactam (Sod 3.375 gm/ Dextrose) 50 mls @ 100 mls/hr IVPB Q8H-IV [facility]; Protocol Last Admin: 02/26/19 17:10 Dose: 100 mls/hr Metronidazole (Flagyl 500mg Premixed Ivpb -) 500 mg in 100 mls @ 100 mls/hr IVPB Q8H-IV [facility] Last Admin: 02/26/19 17:09 Dose: 100 mls/hr Insulin Aspart (Novolog Vial) 1 units SQ ACHS [facility]; Protocol Last Admin: 02/26/19 16:54 Dose: Not Given Levothyroxine Sodium (Synthroid -) 50 mcg PO DAILY@0700 [facility] Rosuvastatin Calcium (Crestor -) 20 mg PO HS [facility] Last Admin: 02/25/19 22:58 Dose: 20 mg a/p diverticulitis with early abscess/phlegmon continue zosyn clinically improved check crp to trend surgery following
[2019-02-26] MEDS: SODIUM CHLORIDE 0.45%/POT 20 MEQ/1,000 ML INFUS.BAG IV SCH (22:25)
[2019-02-26] MEDS: ROSUVASTATIN CA 20 MG TABLET (FP) PO SCH (22:26)
[2019-02-27] MEDS ORDERED: PIPERACILLIN/TAZOBACTAM 3.375 GM VIAL IVPB ONE ×3 (01:13→16:31)
[2019-02-27] MEDS ORDERED: DEXTROSE 5%-WATER - 50 ML IVPB ONE ×3 (01:13→16:31)
[2019-02-27] MEDS: PIPERACILLIN/TAZOB 3.375 GM 3.375 GM in DEXTROSE 5%-WATER - 50 ML IVPB SCH ×3 (01:16→17:53)
[2019-02-27] MEDS: LEVOTHYROXINE NA 50 MCG TABLET (FP) PO SCH (06:42)
[2019-02-27] MEDS: INSULIN (NOVOLOG) ASPART 100 UNITS/ML 10ML VIAL SQ SCH ×4 (06:43→22:17)
[2019-02-27 07:52] LABS: BLOOD UREA NITROGEN 19.7 mg/dL (7-18); CALCIUM 8.6 mg/dL (8.5-10.1); CREATININE 1.4 mg/dL (0.55-1.3); POTASSIUM 4.3 mmol/L (3.5-5.1)
--- NOTE | 2019-02-27 08:53 | PN ---
Progress Note, Physician - Current Medication List Current Medications: Active Medications Heparin Sodium (Porcine) (Heparin -) 5,000 unit SQ BID [facility] Last Admin: 02/26/19 22:26 Dose: 5,000 unit Potassium Chloride/Sodium Chloride (1/2ns+20meq Kcl) 20 meq in 1,000 mls @ 100 mls/hr IV ASDIR [facility] Last Admin: 02/26/19 22:25 Dose: Not Given Piperacillin Sod/Tazobactam (Sod 3.375 gm/ Dextrose) 50 mls @ 100 mls/hr IVPB Q8H-IV [facility]; Protocol Last Admin: 02/27/19 01:16 Dose: 100 mls/hr Metronidazole (Flagyl 500mg Premixed Ivpb -) 500 mg in 100 mls @ 100 mls/hr IVPB Q8H-IV [facility] Last Admin: 02/27/19 01:17 Dose: 100 mls/hr Insulin Aspart (Novolog Vial) 1 units SQ ACHS [facility]; Protocol Last Admin: 02/27/19 06:43 Dose: Not Given Levothyroxine Sodium (Synthroid -) 50 mcg PO DAILY@0700 [facility] Last Admin: 02/27/19 06:42 Dose: 50 mcg Rosuvastatin Calcium (Crestor -) 20 mg PO HS [facility] Last Admin: 02/26/19 22:26 Dose: 20 mg - Objective Vital Signs: Vital Signs Temperature 98.3 F 02/27/19 08:13 Pulse Rate 69 02/27/19 08:13 Respiratory Rate 20 02/27/19 08:14 Blood Pressure 129/64 02/27/19 08:13 O2 Sat by Pulse Oximetry (%) 97 02/27/19 08:14 Cardiovascular: Yes: Regular Rate and Rhythm Respiratory: Yes: Regular, CTA Bilaterally Gastrointestinal: Yes: Normal Bowel Sounds, Soft. No: Tenderness Labs: CBC, BMP 02/26/19 06:27 02/27/19 06:45 INR, PTT INR 0.94 (0.83-1.09) 02/24/19 11:00 Problem List - Problems (1) Diverticulitis Assessment/Plan: IV ABX ID,GI AND SURGICAL CONSULT NPO --PER SURGERY IVF Code(s): K57.92 - DVTRCLI OF INTEST, PART UNSP, W/O PERF OR ABSCESS W/O BLEED (2) Chest pain Assessment/Plan: TROPONIN NEGATIVE CARDIO CONSULT NOTED EKG NO ISCHEMIC CHANGES Code(s): R07.9 - CHEST PAIN, UNSPECIFIED (3) Diabetes Assessment/Plan: BGM WITH SS Code(s): E11.9 - TYPE 2 DIABETES MELLITUS WITHOUT COMPLICATIONS (4) HTN (hypertension) Assessment/Plan: Vital Signs Period Temp Pulse Resp BP Sys/Wiggins Pulse Ox Last 24 Hr 98.4 F-99.5 F 75-80 18-20 109-144/52-85 96-100 Code(s): I10 - ESSENTIAL (PRIMARY) HYPERTENSION (5) Hx of CABG Code(s): Z95.1 - PRESENCE OF AORTOCORONARY BYPASS GRAFT
--- NOTE | 2019-02-27 09:11 | PN ---
Progress Note (short form) - Note Progress Note: Clinically improving pain free Exam benign Resolving diverticulitis Advance diet as tolerated Plan DC on Cipro and flagyl Problem List - Problems (1) Diverticulitis Code(s): K57.92 - DVTRCLI OF INTEST, PART UNSP, W/O PERF OR ABSCESS W/O BLEED
[2019-02-27] MEDS: HEPARIN NA (PORCINE) 5,000 UNITS/ML 1ML VIAL SQ SCH ×2 (09:19→22:16)
[2019-02-27] MEDS: SODIUM CHLORIDE 0.45%/POT 20 MEQ/1,000 ML INFUS.BAG IV SCH (22:15)
[2019-02-27] MEDS: ROSUVASTATIN CA 20 MG TABLET (FP) PO SCH (22:16)
[2019-02-28] MEDS ORDERED: PIPERACILLIN/TAZOBACTAM 3.375 GM VIAL IVPB ONE ×2 (01:40→09:06)
[2019-02-28] MEDS ORDERED: DEXTROSE 5%-WATER - 50 ML IVPB ONE ×2 (01:41→09:06)
[2019-02-28] MEDS: PIPERACILLIN/TAZOB 3.375 GM 3.375 GM in DEXTROSE 5%-WATER - 50 ML IVPB SCH ×2 (01:53→09:14)
[2019-02-28] MEDS: LEVOTHYROXINE NA 50 MCG TABLET (FP) PO SCH (06:17)
[2019-02-28] MEDS: INSULIN (NOVOLOG) ASPART 100 UNITS/ML 10ML VIAL SQ SCH (06:18)
[2019-02-28 06:33] VITALS: TEMP 98.3
--- NOTE | 2019-02-28 09:04 | PN ---
Progress Note, Physician History of Present Illness: TOLERATING DIET NO PAIN - Current Medication List Current Medications: Active Medications Heparin Sodium (Porcine) (Heparin -) 5,000 unit SQ BID [facility] Last Admin: 02/27/19 22:16 Dose: 5,000 unit Potassium Chloride/Sodium Chloride (1/2ns+20meq Kcl) 20 meq in 1,000 mls @ 100 mls/hr IV ASDIR [facility] Last Admin: 02/27/19 22:15 Dose: 100 mls/hr Piperacillin Sod/Tazobactam (Sod 3.375 gm/ Dextrose) 50 mls @ 100 mls/hr IVPB Q8H-IV [facility]; Protocol Last Admin: 02/28/19 01:53 Dose: 100 mls/hr Metronidazole (Flagyl 500mg Premixed Ivpb -) 500 mg in 100 mls @ 100 mls/hr IVPB Q8H-IV [facility] Last Admin: 02/28/19 01:53 Dose: 100 mls/hr Insulin Aspart (Novolog Vial) 1 units SQ ACHS [facility]; Protocol Last Admin: 02/28/19 06:18 Dose: Not Given Levothyroxine Sodium (Synthroid -) 50 mcg PO DAILY@0700 [facility] Last Admin: 02/28/19 06:17 Dose: 50 mcg Rosuvastatin Calcium (Crestor -) 20 mg PO HS [facility] Last Admin: 02/27/19 22:16 Dose: 20 mg - Objective Vital Signs: Vital Signs Temperature 98.3 F 02/28/19 06:00 Pulse Rate 76 02/28/19 06:00 Respiratory Rate 20 02/28/19 06:00 Blood Pressure 152/59 L 02/28/19 06:00 O2 Sat by Pulse Oximetry (%) 97 02/27/19 21:00 Cardiovascular: Yes: Regular Rate and Rhythm Respiratory: Yes: Regular, CTA Bilaterally Gastrointestinal: Yes: Normal Bowel Sounds, Soft. No: Tenderness Labs: INR, PTT INR 0.94 (0.83-1.09) 02/24/19 11:00 Problem List - Problems (1) Diverticulitis Assessment/Plan: IV ABX ID,GI AND SURGICAL CONSULT NPO --PER SURGERY DIET TOLERATED DC IVF Code(s): K57.92 - DVTRCLI OF INTEST, PART UNSP, W/O PERF OR ABSCESS W/O BLEED (2) Chest pain Code(s): R07.9 - CHEST PAIN, UNSPECIFIED (3) Diabetes Assessment/Plan: BGM WITH SS Code(s): E11.9 - TYPE 2 DIABETES MELLITUS WITHOUT COMPLICATIONS (4) HTN (hypertension) Assessment/Plan: Vital Signs Period Temp Pulse Resp BP Sys/Wiggins Pulse Ox Last 24 Hr 98.4 F-99.5 F 75-80 18-20 109-144/52-85 96-100 Code(s): I10 - ESSENTIAL (PRIMARY) HYPERTENSION (5) Hx of CABG Code(s): Z95.1 - PRESENCE OF AORTOCORONARY BYPASS GRAFT (6) CKD (chronic kidney disease) Assessment/Plan: CR 1.4 MONITOR Code(s): N18.9 - CHRONIC KIDNEY DISEASE, UNSPECIFIED (7) Dilated pancreatic duct Assessment/Plan: OUTPATIENT FOLLOW UP AND WORK UP Code(s): K86.89 - OTHER SPECIFIED DISEASES OF PANCREAS
[2019-02-28 09:10] LABS: BASO % 0.9 % (0-2.0); EOS % 5.5 % (0-4.5); HEMATOCRIT 35.8 % (32.4-45.2); HEMOGLOBIN 12.1 GM/dL (10.7-15.3); LYMPH % 28.6 % (8-40); MCH 29.9 pg (25.7-33.7); MCHC 33.8 g/dl (32.0-36.0); MEAN CELL VOLUME 88.6 fl (80-96); MEAN PLT VOLUME 7.2 fl (7.5-11.1); MONO % 5.5 % (3.8-10.2); NEUT % 59.5 % (42.8-82.8); PLATELET COUNT 266 K/MM3 (134-434); RBC 4.04 M/mm3 (3.60-5.2); RDW 13.5 % (11.6-15.6); WHITE BLOOD COUNT 8.4 K/mm3 (4.0-10.0)
[2019-02-28] MEDS: HEPARIN NA (PORCINE) 5,000 UNITS/ML 1ML VIAL SQ SCH (09:14)
[2019-02-28 09:28] LABS: ALBUMIN 3.4 g/dl (3.4-5.0); BILIRUBIN,TOTAL 0.6 mg/dL (0.2-1); BLOOD UREA NITROGEN 18.5 mg/dL (7-18); CALCIUM 8.6 mg/dL (8.5-10.1); CREATININE 1.4 mg/dL (0.55-1.3); POTASSIUM 4.5 mmol/L (3.5-5.1); TOT PROT 7.2 g/dl (6.4-8.2)
[2019-02-28 10:44] VITALS: BP 137/69; PULSE 72
--- NOTE | 2019-02-28 11:42 | DS ---
Physical Examination Vital Signs: Vital Signs Temperature 98.3 F 02/28/19 10:00 Pulse Rate 72 02/28/19 10:00 Respiratory Rate 22 H 02/28/19 10:00 Blood Pressure 137/69 02/28/19 10:00 O2 Sat by Pulse Oximetry (%) 96 02/28/19 09:00 Findings/Remarks: eating tolerating meals, cleared by surgery Constitutional: Yes: No Distress Eyes: Yes: WNL HENT: Yes: WNL Neck: Yes: WNL Cardiovascular: Yes: WNL Respiratory: Yes: WNL Gastrointestinal: Yes: WNL Musculoskeletal: Yes: WNL Extremities: Yes: WNL Edema: LUE: Trace, RUE: Trace, LLE: Trace, RLE: Trace Peripheral Pulses WNL: Yes Labs: CBC, BMP 02/28/19 08:42 02/28/19 08:42 Discharge Summary Problems reviewed: Yes Reason For Visit: CHEST PAIN,DIVERTICULITIS Current Active Problems CKD (chronic kidney disease) (Acute) Chest pain (Acute) Diabetes (Acute) Dilated pancreatic duct (Acute) Diverticulitis (Acute) HTN (hypertension) (Acute) Hx of CABG (Acute) Hypothyroid (Acute) Procedures: Principal: ct scan Hospital Course: treated for diverticulitis and treated with iv abx and fluids, on soft diet liquids Plan of Treatment: liquid diet low residue soft as tolerated Condition: Stable - Instructions Diet, Activity, Other Instructions: FOLLOW UP WITH DR KRISHNA FOR COLONOSCOPY AND FOLLOW UP TEST FOR PANCREAS see dr krishna 2 days Referrals: Bronson Krishna [Primary Care Provider] - Disposition: [facility]/HOME HEALTH CARE - Home Medications Comprehensive Discharge Medication List: Ambulatory Orders Amantadine HCl [Amantadine] 100 mg PO DAILY 02/24/19 Aspirin [ASA -] 81 mg PO DAILY 02/24/19 Calcium Carbonate/Vitamin D3 [Calcium 500-Vit D3 400 Tablet] 1 each PO BID 02/24 Chlorthalidone 25 mg PO DAILY 02/24/19 Ferrous Sulfate 325 mg PO DAILY 02/24/19 Icosapent Ethyl [Vascepa] 1 cap PO DAILY 02/24/19 Insulin Aspart [Novolog] 100 unit SQ ASDIR 02/24/19 Levothyroxine [Synthroid -] 25 mcg PO DAILY 02/24/19 Linagliptin [Tradjenta] 5 mg PO DAILY 02/24/19 Multivitamins [Multivit ([facility] Formulary)] 1 tab PO DAILY 02/24/19 Rosuvastatin Calcium 20 mg PO DAILY 02/24/19 Ciprofloxacin [Cipro (Restricted To Id)] 500 mg PO Q12H #14 tablet 02/28/19 Empagliflozin [Jardiance] 10 mg PO DAILY #30 tablet 02/28/19 Rosuvastatin [Crestor -] 20 mg PO HS #30 tablet 02/28/19 metroNIDAZOLE [Flagyl -] 500 mg PO TID #21 tablet 02/28/19 Prescription Drug Monitoring Program (I-STOP) results: I-STOP not reviewed
== END 2019-02-28 13:33 | disposition home health service (06) | DRG 392 ==
LOC: JER 10:03 → JERBED 13:21 → J4W 21:47
PROVIDERS: ADMIT Family Medicine; ATTEND Family Medicine
DX: K57.32 Diverticulitis of large intestine without perforation or abscess without bleeding (principal); I25.10 Atherosclerotic heart disease of native coronary artery without angina pectoris; I10 Essential (primary) hypertension; E11.9 Type 2 diabetes mellitus without complications; E03.9 Hypothyroidism, unspecified; R07.9 Chest pain, unspecified; E78.5 Hyperlipidemia, unspecified; Z95.1 Presence of aortocoronary bypass graft; K86.89 Other specified diseases of pancreas; R10.9 Unspecified abdominal pain
CPT/HCPCS: 36415; 71046-TC-FY; 74177-TC; 80048; 80053; 80061; 81003; 82550; 82553; 82962; 83036; 83721; 83735; 84443; 84484; 85025; 85610; 85730; 86140; 87040; 87086; 93005; 93010; 93306-TC; 99285-25; J1644; J3480; Q9967

== ENCOUNTER 2022-01-01 12:14 | Inpatient (IN) | payer OTHER ==
[2022-01-01] MEDS ORDERED: SODIUM CHLORIDE 0.9% 500 ML INFUS.BAG IV ONE (12:50)
[2022-01-01 14:03] LABS: BASO % 0.5 % (0-2.0); HEMATOCRIT 38.4 % (32.4-45.2); HEMOGLOBIN 12.5 GM/dL (10.7-15.3); LYMPH % 31.1 % (8-40); MCH 29.6 pg (25.7-33.7); MCHC 32.4 g/dl (32.0-36.0); MEAN CELL VOLUME 91.1 fl (80-96); MEAN PLT VOLUME 7.1 fl (7.5-11.1); MONO % 5.8 % (3.8-10.2); NEUT % 59.6 % (42.8-82.8); PLATELET COUNT 248 10^3/uL (134-434); RBC 4.21 M/mm3 (3.60-5.2); RDW 13.4 % (11.6-15.6); WHITE BLOOD COUNT 8.4 K/mm3 (4.0-10.0)
[2022-01-01 14:05] LABS: EPI CELLS 3 /uL (0-25.1); HYALINE CASTS 0 /uL (0-3.1); PH,URINE 5.5 (5.0-8.0); URINE APPEARANCE CLEAR; URINE BACTERIA >9,000 /uL (0-1359); URINE BILIRUBIN NEGATIVE (NEGATIVE); URINE COLOR YELLOW; URINE GLUCOSE (UA) 2+ (NEGATIVE); URINE KETONE NEGATIVE (NEGATIVE); URINE LEUK ESTERASE 2+ (NEGATIVE); URINE NITRITE NEGATIVE (NEGATIVE); URINE PROTEIN NEGATIVE (NEGATIVE); URINE RBC 96 /uL (0-23.9); URINE UROBILINOGEN 0.2 mg/dL (0.2-1.0); URINE WBC 131 /uL (0-25.8)
[2022-01-01 14:28] LABS: ALBUMIN 3.7 g/dl (3.4-5.0); CALCIUM 9.5 mg/dL (8.5-10.1)
[2022-01-01 14:29] LABS: BLOOD UREA NITROGEN 33.8 mg/dL (7-18); MAGNESIUM 2.1 mg/dL (1.8-2.4)
[2022-01-01 14:31] LABS: CREATININE 1.4 mg/dL (0.55-1.3)
[2022-01-01 14:33] LABS: BILIRUBIN,TOTAL 0.4 mg/dL (0.2-1); TOT PROT 7.5 g/dl (6.4-8.2)
[2022-01-01] MEDS ORDERED: CEFTRIAXONE 1,000 MG in DEXTROSE 5%-WATER - 50 ML IVPB ONE (15:33)
[2022-01-01] MEDS ORDERED: CEFTRIAXONE 1 GM/50 ML BAG ONE (15:51)
[2022-01-01] MEDS ORDERED: ACETAMINOPHEN 325 MG TABLET (FP) PO PRN (18:03)
[2022-01-01] MEDS: ROSUVASTATIN CA 20 MG TABLET PO SCH ×2 (22:00→22:59)
[2022-01-01] MEDS ORDERED: PATIENT'S OWN MEDICATION (NON-FORMULARY) (Calcium Carbonate/Vitamin D3 [Calcium 500-Vit D3 PO SCH (22:00)
[2022-01-01] MEDS: CALCIUM 500MG/VIT-D 200 UNITS COMBO TABLET (FP) PO SCH (22:59)
[2022-01-01] MEDS: HEPARIN NA (PORCINE) 5,000 UNITS/ML 1ML VIAL SQ SCH (22:59)
[2022-01-01 23:49] VITALS: BMI 33.4
[2022-01-02] MEDS: LEVOTHYROXINE NA 25 MCG TABLET (FP) PO SCH (06:39)
[2022-01-02] MEDS: sitaGLIPtin PHOSPHATE 50 MG TABLET PO SCH (06:39)
[2022-01-02] MEDS ORDERED: FLU VACC QS2022-23(6MOS UP)/PF 60 MCG/0.5 ML SYRINGE IM ONE (08:00)
[2022-01-02 08:02] LABS: BASO % 0.5 % (0-2.0); EOS % 3.9 % (0-4.5); HEMATOCRIT 38.1 % (32.4-45.2); HEMOGLOBIN 12.7 GM/dL (10.7-15.3); LYMPH % 31.6 % (8-40); MCH 30.2 pg (25.7-33.7); MCHC 33.3 g/dl (32.0-36.0); MEAN CELL VOLUME 90.5 fl (80-96); MEAN PLT VOLUME 7.6 fl (7.5-11.1); MONO % 6.8 % (3.8-10.2); NEUT % 57.2 % (42.8-82.8); PLATELET COUNT 263 10^3/uL (134-434); RBC 4.21 M/mm3 (3.60-5.2); RDW 13.4 % (11.6-15.6)
[2022-01-02 08:14] LABS: CALCIUM 9.8 mg/dL (8.5-10.1)
[2022-01-02 08:15] LABS: ALBUMIN 3.6 g/dl (3.4-5.0); BLOOD UREA NITROGEN 25.4 mg/dL (7-18)
[2022-01-02 08:18] LABS: BILIRUBIN,TOTAL 0.7 mg/dL (0.2-1); CREATININE 1.4 mg/dL (0.55-1.3)
[2022-01-02 08:19] LABS: TOT PROT 7.3 g/dl (6.4-8.2)
[2022-01-02] MEDS ORDERED: PATIENT'S OWN MEDICATION (NON-FORMULARY) (Ferrous Sulfate [Ferrous Sulfate] 325 MG Tablet) PO SCH (10:00)
[2022-01-02] MEDS ORDERED: ICOSAPENT ETHYL PO SCH (10:00)
[2022-01-02] MEDS ORDERED: CHLORTHALIDONE 25 MG TABLET PO SCH (10:00)
[2022-01-02] MEDS ORDERED: PATIENT'S OWN MEDICATION (NON-FORMULARY) (Empagliflozin [Jardiance] 10 MG Tablet) PO SCH (10:00)
[2022-01-02] MEDS ORDERED: ASPIRIN 81 MG CHEWABLE TABLETS PO SCH (10:00)
[2022-01-02] MEDS: FERROUS SO4 325 MG TABLET (FP) PO SCH (10:08)
[2022-01-02] MEDS: OMEGA-3 ACID ETHYL ESTERS (FATTY-ACIDS) 1 GM CAPSULE (FP) PO SCH (10:09)
[2022-01-02] MEDS: HEPARIN NA (PORCINE) 5,000 UNITS/ML 1ML VIAL SQ SCH ×2 (10:09→21:53)
[2022-01-02] MEDS: CALCIUM 500MG/VIT-D 200 UNITS COMBO TABLET (FP) PO SCH ×2 (10:09→21:54)
[2022-01-02] MEDS: MULTIVITAMINS (DAILY MVI) TABLET (FP) PO SCH (10:09)
[2022-01-02] MEDS: CEFTRIAXONE 1 GM in DEXTROSE 5%-WATER - 50 ML IVPB SCH (10:09)
[2022-01-02 11:23] VITALS: RESP 18
[2022-01-02] MEDS: AMANTADINE HCL 100 MG TABLET PO SCH (11:31)
[2022-01-02] MEDS: INSULIN SLIDING SCALE (NOVOLOG) 1 VIAL SQ SCH ×2 (17:04→22:06)
[2022-01-02] MEDS ORDERED: ACETAMINOPHEN 325 MG TABLET (FP) PO PRN (18:41)
[2022-01-02] MEDS ORDERED: SODIUM CHLORIDE 0.45% 1,000 ML IV SCH (18:45)
[2022-01-03] MEDS: sitaGLIPtin PHOSPHATE 50 MG TABLET PO SCH (06:12)
[2022-01-03] MEDS: LEVOTHYROXINE NA 25 MCG TABLET (FP) PO SCH (06:12)
[2022-01-03] MEDS: INSULIN SLIDING SCALE (NOVOLOG) 1 VIAL SQ SCH ×2 (06:13→11:59)
[2022-01-03] MEDS: CEFTRIAXONE 1 GM in DEXTROSE 5%-WATER - 50 ML IVPB SCH (09:09)
[2022-01-03] MEDS: OMEGA-3 ACID ETHYL ESTERS (FATTY-ACIDS) 1 GM CAPSULE (FP) PO SCH (09:09)
[2022-01-03] MEDS: MULTIVITAMINS (DAILY MVI) TABLET (FP) PO SCH (09:09)
[2022-01-03] MEDS: FERROUS SO4 325 MG TABLET (FP) PO SCH (09:09)
[2022-01-03] MEDS: HEPARIN NA (PORCINE) 5,000 UNITS/ML 1ML VIAL SQ SCH (09:09)
[2022-01-03] MEDS: AMANTADINE HCL 100 MG TABLET PO SCH (09:10)
[2022-01-03] MEDS ORDERED: ASPIRIN COATED 81 MG TABLET.EC PO SCH (10:00)
[2022-01-03] MEDS ORDERED: amLODIPine BESYLATE 5 MG TABLET (FP) PO SCH (10:00)
[2022-01-03 11:11] VITALS: BP 142/54; PULSE 71; TEMP 99.2
== END 2022-01-03 15:11 | disposition home or self-care (01) | DRG 690 ==
LOC: JER 12:14 → JERBED 17:07 → OBSVTOIN 18:03 → J4W 22:04
PROVIDERS: ADMIT Internal Medicine; ATTEND Internal Medicine
DX: N39.0 Urinary tract infection, site not specified (principal); I10 Essential (primary) hypertension; E03.9 Hypothyroidism, unspecified; B96.1 Klebsiella pneumoniae [K. pneumoniae] as the cause of diseases classified elsewhere; E11.9 Type 2 diabetes mellitus without complications; I25.10 Atherosclerotic heart disease of native coronary artery without angina pectoris; J45.909 Unspecified asthma, uncomplicated; E78.5 Hyperlipidemia, unspecified; Z95.1 Presence of aortocoronary bypass graft
CPT/HCPCS: 36415; 70450-TC; 71045-TC-FY; 80053; 81003; 82962; 83735; 84484; 85025; 87086; 87186; 93005; 93010; 97116-GP; 97162-GP; 99285-25; C9803-CS; G0008; G0378; J1644; Q2036; U0003; U0005

== ENCOUNTER 2022-01-28 12:51 | Inpatient (IN) | payer OTHER ==
[2022-01-28 13:19] VITALS: BMI 32.2
[2022-01-28] MEDS ORDERED: ACETAMINOPHEN 1000 MG/100 ML BAG IVPB ONE ×2 (13:53→21:08)
[2022-01-28] MEDS ORDERED: ACETAMINOPHEN INJECTION 100 ML IVPB ONE ×2 (14:14→21:23)
[2022-01-28 14:50] LABS: BASO % 0.8 % (0-2.0); EOS % 0.3 % (0-4.5); HEMATOCRIT 38.4 % (32.4-45.2); HEMOGLOBIN 12.9 GM/dL (10.7-15.3); LYMPH % 18.3 % (8-40); MCH 30.3 pg (25.7-33.7); MCHC 33.4 g/dl (32.0-36.0); MEAN CELL VOLUME 90.5 fl (80-96); MEAN PLT VOLUME 7.1 fl (7.5-11.1); MONO % 6.3 % (3.8-10.2); NEUT % 74.3 % (42.8-82.8); PH,URINE 5.5 (5.0-8.0); PLATELET COUNT 242 10^3/uL (134-434); RBC 4.24 M/mm3 (3.60-5.2); RDW 13.9 % (11.6-15.6); URINE APPEARANCE CLEAR; URINE BILIRUBIN NEGATIVE (NEGATIVE); URINE COLOR YELLOW; URINE GLUCOSE (UA) 2+ (NEGATIVE); URINE KETONE NEGATIVE (NEGATIVE); URINE LEUK ESTERASE NEGATIVE (NEGATIVE); URINE NITRITE NEGATIVE (NEGATIVE); URINE PROTEIN NEGATIVE (NEGATIVE); URINE UROBILINOGEN 0.2 mg/dL (0.2-1.0); WHITE BLOOD COUNT 13.3 K/mm3 (4.0-10.0)
[2022-01-28 15:06] LABS: INR 1.08 (0.83-1.09); PROTHROMBIN TIME (PATIENT) 12.4 SEC (9.7-13.0)
[2022-01-28 15:09] LABS: ACTIVATED PTT 30.9 SECONDS (25.2-36.5); CALCIUM 9.3 mg/dL (8.5-10.1)
[2022-01-28 15:10] LABS: ALBUMIN 3.9 g/dl (3.4-5.0); BLOOD UREA NITROGEN 22.7 mg/dL (7-18); MAGNESIUM 2.1 mg/dL (1.8-2.4)
[2022-01-28 15:13] LABS: CREATININE 1.5 mg/dL (0.55-1.3)
[2022-01-28 15:15] LABS: BILIRUBIN,TOTAL 0.7 mg/dL (0.2-1); TOT PROT 8.1 g/dl (6.4-8.2)
[2022-01-28 15:17] LABS: N-TERMINAL BNP 420.2 pg/ml (5-450)
[2022-01-28] MEDS ORDERED: LIDOCAINE 5% TOPICAL PATCH TP ONE (21:41)
[2022-01-28] MEDS ORDERED: LIDOCAINE 5% TOPICAL PATCH ONE (21:56)
[2022-01-28] MEDS: LIDOCAINE PATCH REMOVAL MC SCH (22:01)
[2022-01-29] MEDS ORDERED: ACETAMINOPHEN 1000 MG/100 ML BAG IVPB ONE (03:30)
[2022-01-29] MEDS ORDERED: VANCOMYCIN/WATER 1,250 MG/250 ML BAG IVPB SCH ×2 (04:00→04:30)
[2022-01-29] MEDS ORDERED: PIPERACILLIN/TAZOB 2.25 GM 2.25 GM in DEXTROSE 5%-WATER - 50 ML IVPB SCH (04:15)
[2022-01-29] MEDS ORDERED: SODIUM CHLORIDE 1,000 ML IV SCH (04:15)
[2022-01-29] MEDS: PIPERACILLIN/TAZOB 2.25 GM 2.25 GM in DEXTROSE 5%-WATER - 50 ML IVPB SCH ×2 (04:48→09:29)
[2022-01-29] MEDS ORDERED: ACETAMINOPHEN 1000 MG/100 ML BAG IVPB PRN (05:00)
[2022-01-29] MEDS: HEPARIN NA (PORCINE) 5,000 UNITS/ML 1ML VIAL SQ SCH ×3 (05:53→22:31)
[2022-01-29] MEDS: INSULIN SLIDING SCALE (NOVOLOG) 1 VIAL SQ SCH ×4 (06:37→22:34)
[2022-01-29 10:32] LABS: BASO % 0.4 % (0-2.0); EOS % 1.9 % (0-4.5); HEMATOCRIT 35.4 % (32.4-45.2); HEMOGLOBIN 11.6 GM/dL (10.7-15.3); LYMPH % 25.9 % (8-40); MCH 29.9 pg (25.7-33.7); MCHC 32.9 g/dl (32.0-36.0); MEAN CELL VOLUME 90.8 fl (80-96); MEAN PLT VOLUME 7.2 fl (7.5-11.1); MONO % 8.4 % (3.8-10.2); NEUT % 63.4 % (42.8-82.8); PLATELET COUNT 243 10^3/uL (134-434); RDW 13.7 % (11.6-15.6); WHITE BLOOD COUNT 10.4 K/mm3 (4.0-10.0)
[2022-01-29 10:51] LABS: CALCIUM 9.5 mg/dL (8.5-10.1)
[2022-01-29 10:52] LABS: ALBUMIN 3.3 g/dl (3.4-5.0); BLOOD UREA NITROGEN 22.8 mg/dL (7-18)
[2022-01-29 10:54] LABS: CREATININE 1.5 mg/dL (0.55-1.3); PHOSPHOROUS 3.8 mg/dL (2.5-4.9)
[2022-01-29 10:55] LABS: BILIRUBIN,TOTAL 0.9 mg/dL (0.2-1); TOT PROT 7.1 g/dl (6.4-8.2)
[2022-01-29 11:02] LABS: CHOLESTEROL 128 mg/dL (50-200); TRIGLYCERIDES 145 mg/dL (0-150)
[2022-01-29 11:04] LABS: LDL CHOLESTEROL (ONLY SJRH) 47 mg/dL (5-100)
[2022-01-29 11:05] LABS: HDL CHOLESTEROL 58 mg/dL (40-60)
[2022-01-29 12:09] VITALS: RESP 18
[2022-01-29] MEDS ORDERED: traMADol HCL 50 MG TABLET PO PRN (12:30)
[2022-01-29] MEDS: CEFAZOLIN 1 GM in DEXTROSE 5%-WATER - 50 ML IVPB SCH (17:25)
[2022-01-29] MEDS ORDERED: CEFAZOLIN 1 GM in DEXTROSE 5%-WATER 50 ML IVPB SCH (18:00)
[2022-01-29] MEDS ORDERED: ROSUVASTATIN CA 20 MG TABLET PO SCH (22:00)
[2022-01-29] MEDS: LIDOCAINE PATCH REMOVAL MC SCH (22:00)
[2022-01-30] MEDS: CEFAZOLIN 1 GM in DEXTROSE 5%-WATER - 50 ML IVPB SCH ×2 (03:00→10:12)
[2022-01-30] MEDS: OMEGA-3 ACID ETHYL ESTERS (FATTY-ACIDS) 1 GM CAPSULE (FP) PO SCH ×2 (05:56→10:13)
[2022-01-30] MEDS: INSULIN SLIDING SCALE (NOVOLOG) 1 VIAL SQ SCH ×2 (06:46→12:02)
[2022-01-30] MEDS: HEPARIN NA (PORCINE) 5,000 UNITS/ML 1ML VIAL SQ SCH (06:46)
[2022-01-30] MEDS ORDERED: LEVOTHYROXINE NA 88 MCG TABLET (FP) PO SCH (07:00)
[2022-01-30] MEDS ORDERED: amLODIPine BESYLATE 10 MG TABLET (FP) PO SCH (10:00)
[2022-01-30] MEDS ORDERED: HYDROCHLOROTHIAZIDE 12.5 MG CAPSULE (FP) PO SCH (10:00)
[2022-01-30] MEDS ORDERED: PATIENT'S OWN MEDICATION (NON-FORMULARY) (Losartan/Hydrochlorothiazide [Losartan-Hctz 100- PO SCH (10:00)
[2022-01-30] MEDS ORDERED: MULTIVITAMINS (DAILY MVI) TABLET (FP) PO SCH (10:00)
[2022-01-30] MEDS ORDERED: LOSARTAN POTASSIUM 50 MG TABLET PO SCH (10:00)
[2022-01-30] MEDS ORDERED: FERROUS SO4 325 MG TABLET (FP) PO SCH (10:00)
[2022-01-30 10:21] VITALS: BP 118/60; PULSE 75; TEMP 99.2
[2022-01-30 12:28] LABS: HEMOGLOBIN 11.6 GM/dL (10.7-15.3); MCHC 33.3 g/dl (32.0-36.0); MEAN CELL VOLUME 90.3 fl (80-96); MEAN PLT VOLUME 7.6 fl (7.5-11.1); PLATELET COUNT 262 10^3/uL (134-434); RBC 3.87 M/mm3 (3.60-5.2); RDW 13.4 % (11.6-15.6); WHITE BLOOD COUNT 10.7 K/mm3 (4.0-10.0)
[2022-01-30 12:51] LABS: CREATININE 1.5 mg/dL (0.55-1.3)
[2022-01-30 12:54] LABS: ALBUMIN 3.2 g/dl (3.4-5.0); BILIRUBIN,TOTAL 0.5 mg/dL (0.2-1); BLOOD UREA NITROGEN 24.3 mg/dL (7-18); CALCIUM 8.9 mg/dL (8.5-10.1); TOT PROT 7.2 g/dl (6.4-8.2)
== END 2022-01-30 13:44 | disposition home or self-care (01) | DRG 558 ==
LOC: JER 12:51 → JERBED 17:55 → J6S 01-29 01:50 → OBSVTOIN 01-29 03:19 → J6S 01-30 16:06
PROVIDERS: ADMIT Internal Medicine; ATTEND Internal Medicine
DX: M70.62 Trochanteric bursitis, left hip (principal); I45.2 Bifascicular block; I25.10 Atherosclerotic heart disease of native coronary artery without angina pectoris; E03.9 Hypothyroidism, unspecified; I45.10 Unspecified right bundle-branch block; M54.50 Low back pain, unspecified; I12.9 Hypertensive chronic kidney disease with stage 1 through stage 4 chronic kidney disease, or unspecified chronic kidney disease; E11.22 Type 2 diabetes mellitus with diabetic chronic kidney disease; N18.32 Chronic kidney disease, stage 3b; K57.90 Diverticulosis of intestine, part unspecified, without perforation or abscess without bleeding; K86.89 Other specified diseases of pancreas; Z95.1 Presence of aortocoronary bypass graft; Z95.5 Presence of coronary angioplasty implant and graft
CPT/HCPCS: 36415; 71045-TC-FY; 74177-TC; 80053; 80061; 81003; 82962; 83735; 83880; 84100; 84443; 84484; 85025; 85027; 85610; 85730; 87040; 87086; 93005; 93010; 93970-TC; 99285-25; C9803-CS; G0378; J1644; Q9967; U0003; U0005

== ENCOUNTER 2022-09-29 08:21 | Inpatient (IN) | payer OTHER ==
[2022-09-29 08:39] VITALS: BMI 31.2
[2022-09-29] MEDS ORDERED: ACETAMINOPHEN 1000 MG/100 ML BAG IVPB ONE (08:56)
[2022-09-29] MEDS ORDERED: SODIUM CHLORIDE 0.9% 500 ML INFUS.BAG IV ONE (08:56)
[2022-09-29] MEDS ORDERED: ACETAMINOPHEN INJECTION 100 ML IVPB ONE (09:41)
[2022-09-29 09:45] LABS: VENOUS BASE EXCESS -1.2 mmol/L (-2-2); VENOUS O2 SATURATION 52.5 % (70-80); VENOUS PH 7.348 (7.310-7.410)
[2022-09-29 09:52] LABS: BASO % 0.6 % (0-2.0); EOS % 0.3 % (0-4.5); HEMATOCRIT 38.1 % (32.4-45.2); HEMOGLOBIN 12.7 GM/dL (10.7-15.3); LYMPH % 20.8 % (8-40); MCH 28.9 pg (25.7-33.7); MCHC 33.3 g/dl (32.0-36.0); MEAN CELL VOLUME 86.8 fl (80-96); MEAN PLT VOLUME 7.5 fl (7.5-11.1); MONO % 11.5 % (3.8-10.2); NEUT % 66.8 % (42.8-82.8); PLATELET COUNT 225 10^3/uL (134-434); RBC 4.39 M/mm3 (3.60-5.2); RDW 14.6 % (11.6-15.6); WHITE BLOOD COUNT 7.9 K/mm3 (4.0-10.0)
[2022-09-29 10:06] LABS: PH,URINE 5.5 (5.0-8.0); URINE APPEARANCE CLEAR; URINE BILIRUBIN NEGATIVE (NEGATIVE); URINE COLOR YELLOW; URINE GLUCOSE (UA) 3+ (NEGATIVE); URINE KETONE NEGATIVE (NEGATIVE); URINE LEUK ESTERASE NEGATIVE (NEGATIVE); URINE NITRITE NEGATIVE (NEGATIVE); URINE PROTEIN TRACE (NEGATIVE); URINE UROBILINOGEN 0.2 mg/dL (0.2-1.0)
[2022-09-29 10:18] LABS: POTASSIUM 4.5 mmol/L (3.5-5.1)
[2022-09-29 10:20] LABS: CALCIUM 9.1 mg/dL (8.5-10.1)
[2022-09-29 10:21] LABS: ALBUMIN 3.8 g/dl (3.4-5.0); BLOOD UREA NITROGEN 23.9 mg/dL (7-18)
[2022-09-29 10:24] LABS: CREATININE 1.6 mg/dL (0.55-1.3)
[2022-09-29 10:25] LABS: BILIRUBIN,TOTAL 0.6 mg/dL (0.2-1)
[2022-09-29] MEDS ORDERED: REMDESIVIR 200 MG in SODIUM CHLORIDE 250 ML IVPB ONE (14:30)
[2022-09-29] MEDS ORDERED: REMDESIVIR 100 MG in SODIUM CHLORIDE 250 ML IVPB SCH (14:30)
[2022-09-29] MEDS ORDERED: HEPARIN NA (PORCINE) 5,000 UNITS/ML 1ML VIAL ONE ×2 (14:39→23:21)
[2022-09-29] MEDS: HEPARIN NA (PORCINE) 5,000 UNITS/ML 1ML VIAL SQ SCH ×2 (14:47→22:38)
[2022-09-29] MEDS: INSULIN SLIDING SCALE (NOVOLOG) 1 VIAL SQ SCH ×2 (18:27→23:58)
[2022-09-29] MEDS: ROSUVASTATIN CA 20 MG TABLET PO SCH (22:37)
[2022-09-29] MEDS ORDERED: ROSUVASTATIN CA 20 MG TABLET ONE (23:20)
[2022-09-30] MEDS ORDERED: LEVOTHYROXINE NA 125 MCG TABLET (FP) PO SCH (07:00)
[2022-09-30 07:12] LABS: BASO % 0.6 % (0-2.0); EOS % 0.5 % (0-4.5); HEMATOCRIT 39.8 % (32.4-45.2); HEMOGLOBIN 12.7 GM/dL (10.7-15.3); MCH 28.4 pg (25.7-33.7); MCHC 31.9 g/dl (32.0-36.0); MEAN CELL VOLUME 89.1 fl (80-96); MEAN PLT VOLUME 7.3 fl (7.5-11.1); MONO % 14.2 % (3.8-10.2); NEUT % 50.7 % (42.8-82.8); PLATELET COUNT 218 10^3/uL (134-434); RBC 4.47 M/mm3 (3.60-5.2); RDW 14.5 % (11.6-15.6); WHITE BLOOD COUNT 6.1 K/mm3 (4.0-10.0)
[2022-09-30 07:20] LABS: POTASSIUM 4.3 mmol/L (3.5-5.1)
[2022-09-30 07:22] LABS: CALCIUM 8.9 mg/dL (8.5-10.1)
[2022-09-30 07:23] LABS: ALBUMIN 3.7 g/dl (3.4-5.0); BLOOD UREA NITROGEN 23.9 mg/dL (7-18); MAGNESIUM 2.3 mg/dL (1.8-2.4)
[2022-09-30 07:26] LABS: CREATININE 1.4 mg/dL (0.55-1.3); PHOSPHOROUS 3.3 mg/dL (2.5-4.9)
[2022-09-30 07:27] LABS: TOT PROT 7.6 g/dl (6.4-8.2)
[2022-09-30 07:28] LABS: BILIRUBIN,TOTAL 0.4 mg/dL (0.2-1)
[2022-09-30] MEDS: INSULIN SLIDING SCALE (NOVOLOG) 1 VIAL SQ SCH ×3 (07:46→21:36)
[2022-09-30] MEDS: HEPARIN NA (PORCINE) 5,000 UNITS/ML 1ML VIAL SQ SCH ×2 (08:23→21:38)
[2022-09-30] MEDS ORDERED: LEVOTHYROXINE NA 25 MCG TABLET (FP) ONE (08:24)
[2022-09-30] MEDS ORDERED: AMANTADINE HCL 100 MG TABLET PO SCH (10:00)
[2022-09-30] MEDS ORDERED: FUROSEMIDE 20 MG TABLET (FP) PO SCH (10:00)
[2022-09-30] MEDS ORDERED: amLODIPine BESYLATE 5 MG TABLET (FP) ONE (12:02)
[2022-09-30] MEDS ORDERED: LOSARTAN POTASSIUM 50 MG TABLET ONE (12:02)
[2022-09-30] MEDS ORDERED: metoPROLOL SUCCINATE 25 MG TAB.SR.24H (FP) PO ONE (12:03)
[2022-09-30] MEDS ORDERED: FUROSEMIDE 20 MG TABLET (FP) ONE (12:03)
[2022-09-30] MEDS: amLODIPine BESYLATE 5 MG TABLET (FP) PO SCH (12:13)
[2022-09-30] MEDS: metoPROLOL SUCCINATE 25 MG TAB.SR.24H (FP) PO SCH (12:13)
[2022-09-30] MEDS: LOSARTAN POTASSIUM 50 MG TABLET PO SCH (12:13)
[2022-09-30] MEDS ORDERED: LEVOTHYROXINE NA 88 MCG TABLET (FP) PO SCH (12:22)
[2022-09-30] MEDS ORDERED: ACETAMINOPHEN 325 MG TABLET (FP) PO PRN (14:04)
[2022-09-30] MEDS ORDERED: HEPARIN NA (PORCINE) 5,000 UNITS/ML 1ML VIAL ONE (16:38)
[2022-09-30] MEDS: REMDESIVIR 100 MG in SODIUM CHLORIDE 250 ML IVPB SCH (16:41)
[2022-09-30] MEDS: ROSUVASTATIN CA 20 MG TABLET PO SCH (21:30)
[2022-10-01 05:43] VITALS: RESP 18
[2022-10-01] MEDS: HEPARIN NA (PORCINE) 5,000 UNITS/ML 1ML VIAL SQ SCH ×3 (06:29→14:04)
[2022-10-01] MEDS: INSULIN SLIDING SCALE (NOVOLOG) 1 VIAL SQ SCH ×3 (06:32→17:12)
[2022-10-01] MEDS: metoPROLOL SUCCINATE 25 MG TAB.SR.24H (FP) PO SCH (10:15)
[2022-10-01] MEDS: amLODIPine BESYLATE 5 MG TABLET (FP) PO SCH (10:15)
[2022-10-01] MEDS: LOSARTAN POTASSIUM 50 MG TABLET PO SCH (10:15)
[2022-10-01] MEDS: REMDESIVIR 100 MG in SODIUM CHLORIDE 250 ML IVPB SCH (14:16)
[2022-10-01 15:09] VITALS: BP 123/59; PULSE 61; TEMP 97.9
== END 2022-10-01 17:14 | disposition home or self-care (01) | DRG 178 ==
LOC: JER 08:21 → JERBED 11:18 → J6S 09-30 19:59
PROVIDERS: ADMIT Internal Medicine; ATTEND Internal Medicine
PROC: XW033E5 Introduction of Remdesivir Anti-infective into Peripheral Vein, Percutaneous Approach, New Technology Group 5 (ICD-10-PCS; principal; 2022-09-29)
DX: U07.1 COVID-19 (principal); M62.82 Rhabdomyolysis; I25.10 Atherosclerotic heart disease of native coronary artery without angina pectoris; I10 Essential (primary) hypertension; E78.5 Hyperlipidemia, unspecified; E11.9 Type 2 diabetes mellitus without complications; E03.9 Hypothyroidism, unspecified; Z95.1 Presence of aortocoronary bypass graft
CPT/HCPCS: 0241U-QW; 36415; 71046-TC-FY; 80053; 81003; 82550; 82553; 82803; 82962; 83605; 83735; 84100; 84484; 85025; 86140; 87040; 87077; 87086; 87186; 93005; 93010; 97116-GP; 97162-GP; 99285-25; C9399; J1644

== ENCOUNTER 2024-07-09 12:01 | Emergency (ER) | payer OTHER ==
[2024-07-09 12:08] VITALS: RESP 16; BMI 33.0
[2024-07-09] MEDS ORDERED: ACETAMINOPHEN INJECTION 100 ML ONE (13:36)
[2024-07-09] MEDS: ACETAMINOPHEN 1000 MG/100 ML BAG IVPB ONE (14:16)
[2024-07-09 14:29] LABS: ABSOLUTE IMMATURE GRANULOCYTES 0.02 x10^3/uL (0.0-0.031); BASOPHILS # 0.04 x10^3/uL (0.01-0.08); EOSINOPHIL % 2.6 % (0.7-5.8); EOSINOPHILS # 0.24 x10^3/uL (0.04-0.36); HEMATOCRIT 36.9 % (34.1-44.9); HEMOGLOBIN 11.6 g/dL (11.2-15.7); MCHC 31.4 g/dl (32.2-35.5); MEAN CELL VOLUME 89.6 fl (79.4-94.8); MONOCYTE # 0.54 x10^3/uL (0.24-0.86); MONOCYTE % 5.8 % (4.7-12.5); PLATELET COUNT 261 x10^3/uL (182-369); RDW 14.6 % (12.4-16.6)
[2024-07-09 14:36] LABS: INR 1.01 (0.83-1.09)
[2024-07-09 14:47] LABS: MAGNESIUM 2.7 mg/dL (1.8-2.4)
[2024-07-09 14:48] LABS: POTASSIUM 5.2 mmol/L (3.5-5.1)
[2024-07-09 14:50] LABS: CALCIUM 9.2 mg/dL (8.5-10.1); URIC ACID 4.9 mg/dL (2.6-7.2)
[2024-07-09 14:51] LABS: ALBUMIN 3.6 g/dl (3.4-5.0); BLOOD UREA NITROGEN 27.7 mg/dL (7-18)
[2024-07-09 14:53] LABS: URIC ACID 4.9 mg/dL (2.6-7.2)
[2024-07-09 14:54] LABS: CREATININE 1.4 mg/dL (0.55-1.3)
[2024-07-09 14:55] LABS: BILIRUBIN,TOTAL 0.4 mg/dL (0.2-1); N-TERMINAL BNP 591.6 pg/ml (5-450)
[2024-07-09 14:56] LABS: TOT PROT 7.6 g/dl (6.4-8.2)
[2024-07-09 18:25] VITALS: BP 180/66; PULSE 97; TEMP 98.9
== END 2024-07-09 18:33 | disposition home or self-care (01) ==
LOC: JER 12:01
PROC: 3E033NZ Introduction of Analgesics, Hypnotics, Sedatives into Peripheral Vein, Percutaneous Approach (ICD-10-PCS; principal; 2024-07-09)
DX: M25.561 Pain in right knee (principal); M25.562 Pain in left knee; M25.461 Effusion, right knee; M25.462 Effusion, left knee; R94.31 Abnormal electrocardiogram [ECG] [EKG]
CPT/HCPCS: 36415; 71045-TC-FY; 73562-TC-LT-FY; 73562-TC-RT-FY; 80053; 83735; 83880; 84484; 84550; 85025; 85610; 85651; 86140; 86850; 86900; 86901; 93005; 93010; 93970-TC; 96374; 99285-25; J0131